=== PATIENT | male | born 1950 | race Caucasian/White ===

== ENCOUNTER 2017-02-02 09:08 | Outpatient (CLI) | payer MEDICARE, OTHER ==
--- NOTE | 2017-02-02 13:07 | XRAY Report ---
THREE VIEW LEFT HAND: 02/02/2017 CLINICAL INDICATION: Infection. FINDINGS: AP, lateral, and oblique views of the left hand demonstrate no evidence of fracture or dis location. No osteolysis is seen to suggest osteomyelitis. Osteoarthritic changes are present in the i nterphalangeal joints. No foreign body is seen in the soft tissues. IMPRESSION: OSTEOARTHRITIS. NO EVIDENCE OF FRACTURE. NO OSTEOLYSIS TO SUGGEST OSTEOMYELITIS. JOB #: [id number] EXT JOB #:[id number]
== END 2017-02-02 09:09 | disposition home or self-care (01) ==
LOC: DI 09:08
PROVIDERS: ATTEND Internal Medicine
DX: L08.89 Other specified local infections of the skin and subcutaneous tissue (principal); M19.042 Primary osteoarthritis, left hand

== ENCOUNTER 2017-07-25 12:15 | Outpatient (CLI) | payer MEDICARE, OTHER ==
[2017-07-25 14:09] LABS: LDL CHOLESTEROL,DIRECT 67 mg/dL
[2017-07-27 10:59] LABS: ALT ALANINE AMINOTRANSFERASE 26 IU/L (10-60); AST ASPARTATE AMINOTRANSFERASE 37 IU/L (10-42)
== END 2017-07-25 12:16 | disposition home or self-care (01) ==
LOC: LAB 12:15
PROVIDERS: ATTEND Internal Medicine
DX: E78.5 Hyperlipidemia, unspecified (principal); Z79.899 Other long term (current) drug therapy
CPT/HCPCS: 36415; 83721; 84450; 84460

== ENCOUNTER 2018-03-08 11:05 | Outpatient (CLI) | payer MEDICARE, OTHER ==
[2018-03-11 15:07] LABS: ANA SCREEN NEGATIVE (NEGATIVE)
== END 2018-03-08 11:06 | disposition home or self-care (01) ==
LOC: LAB 11:05
PROVIDERS: ATTEND Physician Assistant
DX: Z85.828 Personal history of other malignant neoplasm of skin (principal); L82.1 Other seborrheic keratosis; L81.4 Other melanin hyperpigmentation; D22.5 Melanocytic nevi of trunk; D22.72 Melanocytic nevi of left lower limb, including hip; Z71.89 Other specified counseling; L29.8 Other pruritus
CPT/HCPCS: 36415; 86038

== ENCOUNTER 2018-03-22 10:54 | Outpatient (CLI) | payer MEDICARE, OTHER ==
[2018-03-22 12:38] LABS: HGB - HEMOGLOBIN 14.7 g/dL (14.0-18.0); MEAN CORPUSCULAR HEMOGLOBIN 32.4 pg (27.0-31.0); MEAN CORPUSCULAR HGB CONC 34.7 g/dL (32.0-36.0); MEAN CORPUSCULAR VOLUME 93.4 fL (80.0-94.0); RED BLOOD COUNT 4.54 10^6/uL (4.70-6.10); RED CELL DISTRIBUTION WIDTH 13.9 % (12.0-15.0); WHITE BLOOD COUNT 6.1 x10^3/uL (4.8-10.8)
[2018-03-22 12:46] LABS: ALBUMIN 4.3 g/dL (3.2-5.5); ALBUMIN/GLOBULIN RATIO 1.7 (1.0-2.2); BILIRUBIN,TOTAL 0.6 mg/dL (0.2-1.0); CALCIUM 9.1 mg/dL (8.5-10.3); CREATININE 0.6 mg/dL (0.6-1.2); TOTAL PROTEIN 6.8 g/dL (6.7-8.2)
[2018-03-23 13:01] LABS: HEPATITIS C ANTIBODY NON-REACTIVE (NON-REACTIVE)
[2018-03-25 14:46] LABS: ANA SCREEN NEGATIVE (NEGATIVE)
== END 2018-03-22 10:55 | disposition home or self-care (01) ==
LOC: LAB 10:54
PROVIDERS: ATTEND Dermatology
DX: R21 Rash and other nonspecific skin eruption (principal); Z71.89 Other specified counseling; L29.8 Other pruritus
CPT/HCPCS: 36415; 80053; 81599; 85027; 86038; 86235; 86705; 86803

== ENCOUNTER 2018-04-30 13:39 | Outpatient (CLI) | payer MEDICARE, OTHER ==
[2018-04-30 14:03] LABS: BASOPHILS % (AUTO) 0.7 %; EOSINOPHILS # (AUTO) 0.1 10^3/uL (0.0-0.7); EOSINOPHILS % (AUTO) 1.7 %; HGB - HEMOGLOBIN 13.8 g/dL (14.0-18.0); LYMPHOCYTES # (AUTO) 1.2 10^3/uL (1.5-3.5); LYMPHOCYTES % (AUTO) 19.5 %; MEAN CORPUSCULAR HGB CONC 34.2 g/dL (32.0-36.0); MEAN CORPUSCULAR VOLUME 93.7 fL (80.0-94.0); MEAN PLATELET VOLUME 7.4 fL (7.4-11.4); MONOCYTES # (AUTO) 0.6 10^3/uL (0.0-1.0); MONOCYTES % (AUTO) 10.2 %; NEUTROPHILS # (AUTO) 4.3 10^3/uL (1.5-6.6); NEUTROPHILS % (AUTO) 67.9 %; PLT - PLATELET COUNT 200 10^3/uL (130-450); RED BLOOD COUNT 4.31 10^6/uL (4.70-6.10); RED CELL DISTRIBUTION WIDTH 13.8 % (12.0-15.0); WHITE BLOOD COUNT 6.3 x10^3/uL (4.8-10.8)
[2018-04-30 14:17] LABS: HB2 TOTAL 15.2 g/dL; HEMOGLOBIN A1C 0.68 g/dL; HEMOGLOBIN A1C % 6.2 % (4.6-6.2)
[2018-04-30 14:29] LABS: CALCIUM 8.7 mg/dL (8.5-10.3)
[2018-04-30 14:54] LABS: ALBUMIN/GLOBULIN RATIO 1.5 (1.0-2.2)
[2018-04-30 15:09] LABS: ALBUMIN 3.8 g/dL (3.2-5.5); BILIRUBIN,TOTAL 0.7 mg/dL (0.2-1.0); CREATININE 0.6 mg/dL (0.6-1.2); TOTAL PROTEIN 6.3 g/dL (6.7-8.2)
== END 2018-04-30 13:40 | disposition home or self-care (01) ==
LOC: LAB 13:39
PROVIDERS: ATTEND Internal Medicine
DX: R73.01 Impaired fasting glucose (principal); G60.9 Hereditary and idiopathic neuropathy, unspecified; E78.5 Hyperlipidemia, unspecified; J44.9 Chronic obstructive pulmonary disease, unspecified; Z79.899 Other long term (current) drug therapy; Z12.5 Encounter for screening for malignant neoplasm of prostate
CPT/HCPCS: 36415; 80053; 83036; 84443; 85025; G0103; 84153

== ENCOUNTER 2022-11-14 12:27 | Outpatient (CLI) | payer MEDICARE, OTHER ==
--- NOTE | 2022-11-14 16:55 | MRI Report ---
PROCEDURE: LUMBAR SPINE WO INDICATIONS: BACK PAIN TECHNIQUE: Noncontrast sagittal T1 spin echo and T2 fast echo, sagittal STIR, coronal T2, axial T1 and T2 fast s pin echo through the lumbar spine. COMPARISON: None. FINDINGS: Image quality: Excellent. Alignment and Curvature: No plain films are available for comparison. Thus, for numbering purposes, 5 lumbar type vertebral bodies with a transitional element at S1 will be presumed for the current rep ort, as denoted on the muse image panel. This should be confirmed with plain film correlation prior to any lumbar spinal intervention. Mild rightward curvature of the mid lumbar spine. Loss of normal lum bar lordosis. 4 mm of retrolisthesis of L1 on L2. 3 mm of retrolisthesis of L2 on L3. 8 mm of anterol isthesis of L4 on L5. 3 mm of retrolisthesis of L5 on S1. Bone Marrow: Marrow is of normal overall signal. No acute vertebral body compression fractures. Th ere is moderate reactive signal within the endplates adjacent to the L1-L2, L2-L3, L3-L4, and L5-S1 i ntervertebral discs. Mild reactive signal adjacent to the remaining visualized thoracolumbar discs. Spinal Cord: Conus medullaris terminates at the L1-L2 disc space level. Visualized cord demonstrate s normal signal and size. Paraspinous Soft Tissues: No paravertebral masses. T12-L1: Moderate disc height loss and desiccation. Mild diffuse disc bulge with superimposed right p osterolateral broad-based protrusion. Mild canal stenosis. Mild right greater than left foraminal chuy nosis. L1-L2: Moderate disc height loss and desiccation. Mild diffuse disc bulge. Mild facet and ligament flavum hypertrophy. Mild canal stenosis. Moderate bilateral foraminal stenosis. L2-L3: Severe disc height loss and desiccation. Mild diffuse disc bulge with superimposed left far lateral protrusion. Mild facet and ligament flavum hypertrophy. Mild canal stenosis. Moderate bilate ral foraminal stenosis. L3-L4: Severe disc height loss and desiccation. Moderate diffuse disc bulge/osteophyte with superim posed left far lateral protrusion. Mild facet and ligament flavum hypertrophy. Mild canal stenosis. M oderate to severe right and severe left foraminal stenosis. Left greater than right L3 nerve root com pression. L4-L5: Severe disc height loss and desiccation. Mild diffuse disc bulge. Mild facet and ligament fl avum hypertrophy. Mild canal stenosis. Moderate bilateral foraminal stenosis. L5-S1: Severe disc height loss and desiccation. Moderate diffuse disc bulge/osteophyte. Mild facet hypertrophy and ligament flavum hypertrophy. Mild canal stenosis. Moderate right and moderate to dona re left foraminal stenosis. Left L5 nerve root compression. IMPRESSION: 1. Multilevel degenerative disc and facet disease, in addition to epidural lipomatosis and ligamentum flavum hypertrophy. 2. Mild multilevel canal stenoses. 3. Multilevel foraminal stenoses, worst at L3-L4 and L5-S1 where there is associated intraforaminal n erve root compression. Recommend correlation with clinical symptoms to ascertain relevance of these f indings. 4. Five lumbar type vertebral bodies with a transitional element at S1 were presumed for the purposes of the current report. Correlation with plainfilms as well as the muse image panel of the current ex amination for numbering purposes is recommended prior to any lumbar spinal intervention. Reviewed by: Mojgan Szymanski MD on 11/14/2022 4:54 PM PDT Approved by: Mojgan Szymanski MD on 11/14/2022 4:54 PM PDT Station ID: [id number]
== END 2022-11-14 12:28 | disposition home or self-care (01) ==
LOC: DI 12:27
PROVIDERS: ATTEND Nurse Practitioner
DX: M47.26 Other spondylosis with radiculopathy, lumbar region (principal); M51.36 Other intervertebral disc degeneration, lumbar region; M51.26 Other intervertebral disc displacement, lumbar region; M48.061 Spinal stenosis, lumbar region without neurogenic claudication; M51.35 Other intervertebral disc degeneration, thoracolumbar region; M48.05 Spinal stenosis, thoracolumbar region; M51.37 Other intervertebral disc degeneration, lumbosacral region; M48.07 Spinal stenosis, lumbosacral region; M47.27 Other spondylosis with radiculopathy, lumbosacral region

== ENCOUNTER 2023-01-23 08:00 | Outpatient (CLI) | payer MEDICARE, OTHER ==
--- NOTE | 2023-01-23 14:51 | XRAY Report ---
PROCEDURE: Shoulder 3 View RT INDICATIONS: RIGHT SHOULDER PAIN TECHNIQUE: 3 views of the shoulder were acquired. COMPARISON: None. FINDINGS: Bones: No fractures or dislocations. No suspicious bony lesions. Visualized ribs appear intact. Mild AC joint hypertrophy and glenohumeral joint degenerative changes. Soft tissues: No suspicious soft tissue calcifications. IMPRESSION: No acute bony abnormality. If pain persists with conservative management, consider repeat radiographs in 10-14 days or cross-sectional imaging. Degenerative changes of the acromioclavicular and glenohumeral joints. Reviewed by: Diego Barahona MD on 01/23/2023 2:50 PM PDT Approved by: Diego Barahona MD on 01/23/2023 2:50 PM PDT Station ID: [id number]
--- NOTE | 2023-01-23 14:54 | XRAY Report ---
PROCEDURE: Hip w/Pelvis 2-3V RT INDICATIONS: RIGHT HIP PAIN TECHNIQUE: AP pelvis with lateral view(s) of the right hip(s). COMPARISON: None. FINDINGS: Bones: No fractures or dislocations. No suspicious bony lesions. Bilateral hip joint space narrow ing. Mild right hip spurring also present. Soft tissues: No suspicious soft tissue calcifications. IMPRESSION: No acute bony abnormality. If there remains a high clinical concern for fracture, consider cross-sect ional imaging now. If pain persists, consider repeat x-ray in 10-14 days or cross-sectional imaging. Degenerative changes of both hips. Reviewed by: Diego Barahona MD on 01/23/2023 2:53 PM PDT Approved by: Diego Barahona MD on 01/23/2023 2:53 PM PDT Station ID: [id number]
== END 2023-01-23 23:59 | disposition home or self-care (01) ==
LOC: DI.S 08:00
PROVIDERS: ATTEND Emergency Medicine
DX: M19.011 Primary osteoarthritis, right shoulder (principal); M16.0 Bilateral primary osteoarthritis of hip

== ENCOUNTER 2023-01-29 11:39 | Outpatient (CLI) | payer MEDICARE, OTHER ==
[2023-01-29 11:57] LABS: BASOPHILS % (AUTO) 0.1 %; EOSINOPHILS # (AUTO) 0.1 10^3/uL (0.0-0.7); EOSINOPHILS % (AUTO) 1.1 %; HCT - HEMATOCRIT 42.4 % (42.0-52.0); HGB - HEMOGLOBIN 14.4 g/dL (14.0-18.0); LYMPHOCYTES # (AUTO) 1.9 10^3/uL (1.5-3.5); LYMPHOCYTES % (AUTO) 17.9 %; MEAN CORPUSCULAR HEMOGLOBIN 33.6 pg (27.0-31.0); MEAN CORPUSCULAR VOLUME 98.8 fL (80.0-94.0); MEAN PLATELET VOLUME 9.3 fL (7.4-11.4); MONOCYTES # (AUTO) 0.9 10^3/uL (0.0-1.0); MONOCYTES % (AUTO) 8.7 %; NEUTROPHILS # (AUTO) 7.5 10^3/uL (1.5-6.6); NEUTROPHILS % (AUTO) 71.7 %; PLT - PLATELET COUNT 294 10^3/uL (130-450); RED BLOOD COUNT 4.29 10^6/uL (4.70-6.10); RED CELL DISTRIBUTION WIDTH 14.8 % (12.0-15.0); WHITE BLOOD COUNT 10.5 x10^3/uL (4.8-10.8)
[2023-01-29 12:19] LABS: ALBUMIN/GLOBULIN RATIO 1.9 (1.0-2.2); BILIRUBIN,TOTAL 0.6 mg/dL (0.2-1.0); CALCIUM 9.2 mg/dL (8.5-10.3); CREATININE 0.8 mg/dL (0.6-1.3); CRP - C-REACTIVE PROTEIN 0.5 mg/dL (<0.5); POTASSIUM 4.1 mmol/L (3.5-4.5); TOTAL PROTEIN 6.1 g/dL (6.4-8.9)
== END 2023-01-29 11:40 | disposition home or self-care (01) ==
LOC: LAB 11:39
PROVIDERS: ATTEND Internal Medicine
DX: M12.80 Other specific arthropathies, not elsewhere classified, unspecified site (principal)
CPT/HCPCS: 36415; 80053; 85025; 85651; 86140

== ENCOUNTER 2023-02-01 12:44 | Outpatient (CLI) | payer MEDICARE, OTHER ==
--- NOTE | 2023-02-01 14:41 | MRI Report ---
PROCEDURE: CERVICAL SPINE WO INDICATIONS: DISEASE OF SPINAL CORD TECHNIQUE: Noncontrast sagittal T1 spin echo and T2 fast spin echo, sagittal STIR, foraminal oblique sagittal T2 fast spin echo, and axial gradient echo or T2 fast spin echo through the cervical spine. COMPARISON: None. FINDINGS: Image quality: Excellent. Alignment and Curvature: Straightening of the normal cervical lordosis. Minimal retrolisthesis of C3 on C4 and anterolisthesis of C4 on C5. Minimal retrolisthesis of C6 on C7 and anterolisthesis of C7 o n T1. Bone Marrow: Multilevel degenerative endplate changes. Partial ankylosis of the C5 and C6 vertebral b odies and right facet joints. Spinal Cord: Visualized spinal cord has normal size and signal. No cerebellar tonsillar herniation. Paraspinous Soft Tissues: No paravertebral masses. Prevertebral soft tissues are normal in thicknes s. C2-C3: Small posterior disc bulge. Mild central canal stenosis. Facet and uncovertebral arthropathy resulting in mild right neuroforaminal stenosis. No left neuroforaminal stenosis. C3-C4: Severe disc desiccation and height loss. Small posterior disc bulge. Mild central canal sten osis. Facet and uncovertebral arthropathy. Mild left and moderate right neuroforaminal stenosis. C4-C5: Disc desiccation and height loss. Small posterior disc bulge. No central canal stenosis. Face t and uncovertebral arthropathy. No significant neural foraminal stenosis. C5-C6: Severe disc desiccation and height loss. Small posterior disc osteophyte complex. Mild centra l canal stenosis. Facet and uncovertebral arthropathy. Mild left and no right neuroforaminal stenosis . C6-C7: Severe disc desiccation and height loss. Small posterior disc bulge. Mild central canal steno sis. Facet and uncovertebral arthropathy. Severe left and moderate right neuroforaminal stenosis. C7-T1: Disc desiccation and small central protrusion. No central canal stenosis. No neuroforaminal s tenosis. IMPRESSION: 1.Multilevel degenerative changes of the cervical spine. 2.Mild multilevel central canal stenosis. 3.Multilevel neuroforaminal narrowing, worse at C6-C7 with severe left and moderate right neuroforami nal stenosis. Reviewed by: Drew Bernstein MD on 02/01/2023 2:40 PM PDT Approved by: Drew Bernstein MD on 02/01/2023 2:40 PM PDT Station ID: [id number]
== END 2023-02-01 12:45 | disposition home or self-care (01) ==
LOC: DI 12:44
PROVIDERS: ATTEND Orthopaedic Surgery
DX: M47.812 Spondylosis without myelopathy or radiculopathy, cervical region (principal); M50.31 Other cervical disc degeneration, high cervical region; M48.02 Spinal stenosis, cervical region

== ENCOUNTER 2023-03-15 08:42 | Outpatient (CLI) | payer MEDICARE, OTHER ==
--- NOTE | 2023-03-15 09:17 | Sleep Patient Instructions ---
Sleep Center Visit Summary - Patient Visit Information Reason for Visit: Initial consult for evaluation of sleep disordered breathing and other sleep issues. - Patient Instructions Instructions Attached: Sleep Clinic Visit, Sleep Study Additional Instructions: You will be completing a sleep study, either an in-lab polysomnography (PSG) or home sleep study (HST). You will follow-up in the sleep care office after the sleep study is completed to hear the results and talk about therapy, if needed. You will be called by our office staff to schedule this appointment, but you may contact us with any questions. - Clinic Information Contact: [facility] [address] [place] [address] [email or web address] T: [phone]
--- NOTE | 2023-03-15 09:25 | SLEEP CARE CONSULTATION ---
Information from patient questionnaire entered by Nancy Castillo. I have reviewed and concur with the information entered by Nancy Castillo. This document represents the service I personally performed and the decisions made by me, Paz Mendez ARNP. History of Present Illness Service Date and Time: 03/15/2023 0842 Reason for Visit: New patient Accompanied by: Spouse (Marjorie) Chief Complaint: reports: Unrefreshed sleep, Excessive daytime sleepiness, Observed pauses in breathing Date of Onset: over 25 years Usual bedtime: 10PM Time it takes to fall asleep: 5MIN Snores at night: No Observed to quit breathing while asleep: Yes Sleeps alone due to snoring: No Number of times waking at night: 1 Reasons for waking at night: reports: Other (UNKNOWN). denies: Choking, Gasping for air Toss, Turn, or Twitch while sleeping: Yes Recalls having dreams: No (not often) Usually gets out of bed at: 5AM Feels refreshed in the morning: Yes Morning headache: No Sleepy or fatigued during the day: Yes Ever fallen asleep while driving: No Takes day naps: Yes (1 x week, intentional; unintentional daily for short periods) Dreams during day naps: No Additional HPI information: I had the pleasure of seeing KILEY NIEVES today regarding the possibility of him having a sleep disorder. His current complaints are unrefreshed sleep, observed pauses in breathing and daytime sleepiness. He is accompanied by his , Marjorie. He states he goes to sleep without difficulty and only wakes up about once during the night. He is falling asleep on the couch, as a passenger in a car, in the movies and sometimes when just talking to someone quietly. He will fall asleep when he is playing cards with friends. He states he has restless legs and takes ropinirole. He does not snore but does groan in his sleep. He states he tried CPAP 25 years ago after being diagnosed with sleep apnea but he did not tolerate it and stopped therapy. His states he was told that he stopped breathing over 100 times a night. She has seen him pause in breathing when asleep. 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 He tells me that he does wake up feeling refreshed but is tired throughout the day. - Parasomnia Symptoms Ever been unable to move upon waking from sleep: No Walks in sleep: No Talks in sleep: Yes Ever acted out dreams in sleep: No Ever felt weak in the knees when startled or emotional: No Bothered by creepy, crawly, restless sensations in legs: Yes (RLS) Problems with memory or concentration: Yes ("horrible memory") Subjective Initial [place] Sleepiness Scale score: 14 (03/15/23) Past Medical History Past Medical History: reports: Arthritis, Attention deficit, Other (RLS; high cholesterol) Social History The patient's occupation is a RE. Patient is and lives in [place]. Have you smoked in the past 12 months: Yes Cigarettes per day (20/pack): 20 Years of smokin Smoking Pack Years: 50.0 Alcohol use: Yes Alcohol amount and frequency: 2 BEERS A WEEK Caffeine use: Yes Caffeine amount and frequency: 5 CUPS COFFEE daily Family History Family history of sleep disordered breathing: Yes Family Hx Sleep Apnea: Mother: Sleep apnea - Untreated, Father: Snoring, Sibling: Sleep apnea - Treated, Sleep apnea - Untreated Allergies and Home Medications Known drug allergies: No Drug allergies reviewed: Yes Home medication list reviewed: Yes Allergy and home medication list: Allergies No Known Drug Allergies Allergy (Verified 03/15/23 08:52) Home Medications Aspirin [[place]] See Rx Instructions .ROUTE .COMPLEX 03/15/23 [History] Ropinirole HCl [Ropinirole ER] See Rx Instructions .ROUTE .COMPLEX 03/15/23 [History] Rosuvastatin Calcium [Crestor] See Rx Instructions .ROUTE .COMPLEX 03/15/23 [History] Review of Systems Weight loss over past 5 years: 5 Cardiovascular: denies: high blood pressure Respiratory: denies: shortness of breath Gastrointestinal: denies: heartburn Neurological: denies: headaches, head trauma Psychiatric: denies: anxiety, depression Ear/Nose/Throat: reports: tonsillectomy, wisdom teeth removed. denies: injury to nose Endocrine: denies: thyroid disease Musculoskeletal: reports: joint pain, neck pain, back pain Immunologic: denies: allergies to food or environment Physical Exam Vital signs obtained and entered by: NANCY Sosa MA Blood Pressure: 142/98 (LEFT ARM) Cuff size: regular Heart Rate: 60 O2 Saturation: 98 Height: 5 ft 10 in Weight: 126 lb 6.4 oz Body Mass Index: 18.1 BMI Classification: Underweight Neck circumference: 13.5 Mouth and throat: narrow oropharynx Soft palate: long Hard palate: normal Uvula: normal Uvula visualization: 25% Mallampati Class III Tongue: normal in size Tonsils: absent bilaterally Neck: normal w/o lymphadenopathy or thyromegaly Heart: irregular rhythm Lungs: clear bilaterally Impression and Plan 1. Suspected Obstructive Sleep Apnea-Hypopnea Syndrome, as previously diagnosed and as suggested by a history of observed cessation of breath while asleep, unrefreshed sleep, cognitive impairment, and excessive daytime sleepiness. Narrow oropharynx and obesity are common predisposing factors for obstructive sleep apnea-hypopnea syndrome. I recommend proceeding to polysomnography to confirm the diagnosis and to assess severity. If the patient has significant sleep disordered breathing, a manual CPAP titration study will also be performed to find the optimal treatment pressure. I informed the patient of what the sleep studies involve and after some discussion, obtained agreement to proceed. The pathophysiology of obstructive sleep apnea-hypopnea syndrome was discussed with the patient and health risks of cardiovascular and cerebrovascular disease if not treated. Risks of drowsy driving discussed in detail and patient advised to avoid long distance driving and to over hauler helper at the first sign of drowsiness. Patient agreed to plan. * Schedule polysomnography. * Avoid long distance driving or driving when feeling sleepy. * Avoid alcohol, sedative and muscle relaxant around bedtime. * Review instructions provided by trained office staff on how to prepare for the sleep study. * Return for follow-up after sleep study completed. Plan: PSG evaluation Visit Type: In Office Time Spent with Patient (minutes): 31 Provider Statement: I spent 100% of the Face to Face Visit with the patient with greater than 50% spent counseling the patient and coordination of care.
[2023-03-15 09:31] VITALS: BP 142/98; O2SAT 98
== END 2023-03-15 08:43 | disposition home or self-care (01) ==
LOC: SC 08:42
PROVIDERS: ATTEND Nurse Practitioner Family
DX: G47.33 Obstructive sleep apnea (adult) (pediatric) (principal); F17.210 Nicotine dependence, cigarettes, uncomplicated
CPT/HCPCS: 99203; G0463; 99212

== ENCOUNTER 2023-04-10 20:48 | Outpatient (CLI) | payer MEDICARE, OTHER | END 2023-04-10 20:49 | disposition home or self-care (01) | LOC: SC 20:48 | PROVIDERS: ATTEND Nurse Practitioner Family | DX: G47.33 Obstructive sleep apnea (adult) (pediatric) (principal); G47.61 Periodic limb movement disorder; I49.3 Ventricular premature depolarization | CPT/HCPCS: 95810 ==

== ENCOUNTER 2023-08-22 14:19 | Outpatient (CLI) | payer MEDICARE, OTHER ==
--- NOTE | 2023-08-22 10:46 | SLEEP CARE CONSULTATION ---
Information from patient questionnaire entered by Nancy Castillo. I have reviewed and concur with the information entered by Nancy Castillo. This document represents the service I personally performed and the decisions made by , Paz Mendez ARNP. History of Present Illness Service Date and Time: 08/22/2023 1020 Previous diagnosis: Severe, Obstructive Sleep Apnea-Hypopnea Syndrome AHI: 32.3 (04/10/2023) Reason for follow up: first compliance Equipment type: CPAP (RESMED Airsense 11, s/u 05/2023) Equipment obtained from: [email or web address] (getting supplies) Mask style: Nasal (over the nose) Backup mask available: No (will keep old mask when replaced) Last cushion change: 3 weeks Type of Sleep Study: Polysomnography (COMPLETED 04/10/23) HPI additional information: KILEY NIEVES was diagnosed to have severe, AHI 32.3, obstructive sleep apnea- hypopnea syndrome and returns via telephone appointment today for CPAP therapy first compliance follow-up. Sleep Study - Results Type of Sleep Study: Polysomnography (COMPLETED 04/10/23) CPAP Compliance Data - Data Reviewed with Patient Average duration of nightly device use: 4 HRS 48 MINS Compliance rate %: 70 (05/18/23-06/16/23; 30% in last 30 days) Current pressure setting (cmH2O): 4-15 (median 6.8, avg 9.6, max 10.5) Average residual AHI: 4.0 Central apnea: 0.6 Obstructive apnea: 1.5 Hypopnea: 0.4 Average large leak: 13.2 L/min Subjective Missed days of use due to: reports: travel Patient concerns: reports: mask leak noise (improved with using chin strap). denies: aerophagia, mask discomfort, air blowing in eyes, condensation in mask/hose, nasal congestion, dry mouth, nose, throat, epistaxis Observed to snore while using device: No Current pressure setting perceived as: comfortable On therapy, patient: reports: sleeping better, awakening more refreshed, being more awake and alert during the day, more rested overall, other (does not fall asleep during day as easy as before CPAP). denies: drowsiness while driving Initial [place] Sleepiness Scale score: 14 (03/15/23) Current [place] Sleepiness Scale score: 8 (08/22/23) Allergies and Home Medications Known drug allergies: No Drug allergies reviewed: Yes Home medication list reviewed: Yes (no changes) Allergy and home medication list: Allergies No Known Drug Allergies Allergy (Verified 08/21/23 14:52) Review of Systems Review of systems same as previous: Yes (NO CHANGE) Physical Exam Vital signs obtained and entered by: NANCY Sosa MA Height: 5 ft 11 in (PER PT) Weight: 130 lb (PER PT) Body Mass Index: 18.1 BMI Classification: Underweight Impression and Plan 1. Obstructive Sleep Apnea-Hypopnea Syndrome, severe, with good treatment compliance and good apnea control. On CPAP therapy, the patient has better sleep quality and is more rested overall. He had good compliance initially but in the last month it has reduced because of some travel time where he was unable to plug in his CPAP. He is back to using it nightly since returning home. He has been tolerating the pressure well at his current settings and has no complaints or issues at this time. He does have significant improvement of his sleep apnea. The patients pressure will be changed to autoCPAP 8-12 cmH20 to reflect pressure being used. Patient advised to contact me if pressure change is uncomfortable so that it can be adjusted. Goals for apnea control discussed. Patient's apnea severity and rationale for treatment to reduce apnea, improve sleep quality and reduce cardiovascular and cerebrovascular events was reviewed. I also reviewed the benefit of consistent device use of CPAP for attention deficit and RLS. * Change auto CPAP pressure to 8-12 cmH2O * Notify me if snoring with mask or feeling that the pressure is too much or too little * Call this office if any problems using CPAP * Return for follow up in 1-2 months, or sooner if concerns arise Adjust device pressure to (cmH2O): 8-12 Counseling Topics: Spare mask, Weight loss health impact Follow up with Sleep Care in: 1-2 months Visit Type: Telehealth Phone Video Type: Yiity Patient Location: Home Location of Provider: Office Patient agrees and consents to this telehealth visit type: Yes Time Spent with Patient (minutes): 14 Provider Statement: I spent 100% of the Telehealth Phone Call with the patient with greater than 50% spent counseling the patient and coordination of care.
== END 2023-08-22 14:20 | disposition home or self-care (01) ==
LOC: SC 14:19
PROVIDERS: ATTEND Nurse Practitioner Family
DX: G47.33 Obstructive sleep apnea (adult) (pediatric) (principal)
CPT/HCPCS: 99442

== ENCOUNTER 2023-10-24 10:50 | Outpatient (CLI) | payer MEDICARE, OTHER ==
--- NOTE | 2023-10-24 10:41 | SLEEP CARE CONSULTATION ---
Information from patient questionnaire entered by Nancy Castillo. I have reviewed and concur with the information entered by Nancy Castillo. This document represents the service I personally performed and the decisions made by , Paz Mendez ARNP. History of Present Illness Service Date and Time: 10/24/2023 1020 Previous diagnosis: Severe, Obstructive Sleep Apnea-Hypopnea Syndrome AHI: 32.3 (04/10/2023) Reason for follow up: other (2 MONTH F/U) Equipment type: CPAP (RESMED Airsense 11, s/u 05/2023) Equipment obtained from: [facility] ([employer]) Mask style: Nasal (over the nose) Mask brand: Resmed (N20) Backup mask available: Yes Last cushion change: 1 week Type of Sleep Study: Polysomnography (COMPLETED 04/10/23) HPI additional information: KILEY NIEVES was diagnosed to have severe, AHI 32.3, obstructive sleep apnea-hyp opnea syndrome and returns via telephone visit today for CPAP therapy two month follow-up. Sleep Study - Results Type of Sleep Study: Polysomnography (COMPLETED 04/10/23) CPAP Compliance Data - Data Reviewed with Patient Average duration of nightly device use: 3 HRS 12 MINS Compliance rate %: 17 (08/23/23-; 30/60 days used) Current pressure setting (cmH2O): 8-12 (6-10) Average residual AHI: 5.4 Central apnea: 1.5 Obstructive apnea: 1.6 Hypopnea: 0.4 Average large leak: 19.3 L/min Subjective Missed days of use due to: reports: travel (in [facility] [place] [facility] months, places with no power), other (taking mask off after 2-3 hours) Patient concerns: reports: mask leak noise (occasionally). denies: aerophagia, mask discomfort, air blowing in eyes, condensation in mask/hose, nasal congestion, dry mouth, nose, throat, epistaxis Observed to snore while using device: No Current pressure setting perceived as: too high On therapy, patient: reports: sleeping better, awakening more refreshed, being more awake and alert during the day, more rested overall. denies: drowsiness while driving Initial Con[place] Sleepiness Scale score: 14 (03/15/23) Current Conley Sleepiness Scale score: 13 (10/24/23) Allergies and Home Medications Known drug allergies: No Drug allergies reviewed: Yes Home medication list reviewed: Yes (no changes) Allergy and home medication list: Allergies No Known Drug Allergies Allergy (Verified 10/22/23 08:58) Review of Systems Review of systems same as previous: Yes (NO CHANGE) Physical Exam Vital signs obtained and entered by: NANCY Sosa MA Height: 5 ft 10 in (PER PT) Weight: 130 lb (PER PT) Body Mass Index: 18.6 BMI Classification: Normal Impression and Plan 1. Obstructive Sleep Apnea-Hypopnea Syndrome, severe, with fair treatment compliance and fair apnea control with minimal elevation of residual AHI. On CPAP therapy, the patient has better sleep quality and is more rested overall. He has felt the pressure was too high and would cause leak noises. His compliance was affected by his traveling in his RV and parking in places that did not have electricity. He also has been taking off after 2-3 hours because of mask noise and discomfort. The patients pressure will be changed to autoCPAP 6-10 cmH20 for elevation of residual AHI. I will also write to change the mask to the P10 nasal pillows mask that he requested to change to. Patient advised to contact me if pressure change is uncomfortable so that it can be adjusted. Goals for apnea control discussed. Patient's apnea severity and rationale for treatment to reduce apnea, improve sleep quality and reduce cardiovascular and cerebrovascular events was reviewed. I also reviewed the benefit of consistent device use of CPAP for attention deficit and RLS. * Change auto CPAP pressure to 6-10 cmH2O * Mask fitting for nasal pillows mask, P10 * Notify me if snoring with mask or feeling that the pressure is too much or too little * Call this office if any problems using CPAP * Return for follow up in 1-2 months, or sooner if concerns arise Adjust device pressure to (cmH2O): 6-10 Counseling Topics: Spare mask, Weight loss health impact Follow up with Sleep Care in: 1-2 months Visit Type: Telehealth Phone Video Type: Miguel Patient Location: Home Location of Provider: Office Patient agrees and consents to this telehealth visit type: Yes Time Spent with Patient (minutes): 19 Provider Statement: I spent 100% of the Telehealth Phone Call with the patient with greater than 50% spent counseling the patient and coordination of care.
== END 2023-10-24 10:51 | disposition home or self-care (01) ==
LOC: SC 10:50
PROVIDERS: ATTEND Nurse Practitioner Family
DX: G47.33 Obstructive sleep apnea (adult) (pediatric) (principal)
CPT/HCPCS: 99442

== ENCOUNTER 2023-11-04 16:59 | Inpatient (IN) | payer MEDICARE, BC ==
[2023-11-04 17:20] LABS: BASOPHILS % (AUTO) 0.3 %; EOSINOPHILS % (AUTO) 0.1 %; HCT - HEMATOCRIT 51.5 % (42.0-52.0); HGB - HEMOGLOBIN 16.9 g/dL (14.0-18.0); LYMPHOCYTES # (AUTO) 1.2 10^3/uL (1.5-3.5); LYMPHOCYTES % (AUTO) 10.4 %; MEAN CORPUSCULAR HEMOGLOBIN 31.6 pg (27.0-31.0); MEAN CORPUSCULAR HGB CONC 32.8 g/dL (32.0-36.0); MEAN CORPUSCULAR VOLUME 96.4 fL (80.0-94.0); MEAN PLATELET VOLUME 10.2 fL (7.4-11.4); MONOCYTES # (AUTO) 0.5 10^3/uL (0.0-1.0); MONOCYTES % (AUTO) 4.5 %; NEUTROPHILS # (AUTO) 9.8 10^3/uL (1.5-6.6); NEUTROPHILS % (AUTO) 84.4 %; PLT - PLATELET COUNT 225 10^3/uL (130-450); RED BLOOD COUNT 5.34 10^6/uL (4.70-6.10); RED CELL DISTRIBUTION WIDTH 13.1 % (12.0-15.0); WHITE BLOOD COUNT 11.7 x10^3/uL (4.8-10.8)
--- NOTE | 2023-11-04 17:24 | ED Physician Documentation ---
PD HPI ABD PAIN - Stated complaint Stated Complaint: ABD PX/VOMIT - Chief complaint Chief Complaint: Abd Pain - History obtained from History obtained from: Patient - Additional information Additional information: Starting this morning around 7 AM he developed upper abdominal pain which is severe as well as vomiting. He did have a normal bowel movement. He has had a hernia repair with mesh in the past. He denies chest pain or trouble breathing with this. PD PAST MEDICAL HISTORY - Past Medical History Past Medical History: Yes Cardiovascular: None Respiratory: Emphysema, Other Neuro: None Endocrine/Autoimmune: None : None HEENT: None Psych: None Musculoskeletal: Osteoarthritis Derm: None - Past Surgical History Past Surgical History: Yes - Present Medications Home Medications: Ambulatory Orders Medication Instructions Recorded Confirmed Aspirin [Vazalore] 81 mg ORAL DAILY 03/15/23 11/04/23 Ropinirole HCl [Ropinirole ER] 8 mg ORAL DAILY PM 03/15/23 11/04/23 Rosuvastatin Calcium [Crestor] 10 mg ORAL DAILY PM 03/15/23 11/04/23 Gabapentin [Neurontin] 0 mg PO HS 11/04/23 11/04/23 - Allergies Allergies/Adverse Reactions: Allergies Allergy/AdvReac Type Severity Reaction Status Date / Time No Known Drug Allergies Allergy Verified 11/04/23 17:01 - Living Situation Living Situation: reports: With spouse/s.o. - Social History Does the pt smoke?: Yes Smoking Status: Current every day smoker Does the pt drink ETOH?: No Does the pt have substance abuse?: No - Immunizations Immunizations are current?: Yes PD ED PE NORMAL - Vitals Vital signs reviewed: Yes (Triage blood pressure was low, but subsequent blood pressures were normal ) - General General: Alert and oriented X 3, No acute distress - HEENT HEENT: PERRL, EOMI - Neck Neck: Supple, no meningeal sign, No bony TTP - Cardiac Cardiac: RRR, No murmur - Respiratory Respiratory: No respiratory distress, Clear bilaterally - Abdomen Abdomen: Soft, Other (Soft but somewhat distended abdomen with hyperactive bowel sounds and what seems to be migratory tenderness predominantly in the upper abdomen. No surgical signs.) - Derm Derm: Other (He is very [place] having spent 6 weeks recently in [place].) - Extremities Extremities: No edema, No calf tenderness / cord - Neuro Neuro: Alert and oriented X 3, Normal speech Results - Vitals Vitals: Vital Signs - 24 hr 11/04/23 11/04/23 17:02 19:07 Temperature 36.7 C Heart Rate 96 99 Respiratory 18 16 Rate Blood Pressure 96/54 L 143/92 H O2 Saturation 99 93 Oxygen O2 Source Room air - EKG (time done) 1729 EKG releavant findings:: EKG personally interpreted by author of this note. Relevant findings are: Rate: Rate (enter#) (88) Rhythm: NSR, ANKUR [place]: RAD Intervals: Normal RI QRS: Normal Ischemia: Normal ST segments. No: ST elevation c/w ischemia 1937 EKG releavant findings:: EKG personally interpreted by author of this note. Relevant findings are: Rate: Rate (enter#) (94) Rhythm: Atrial fibrillation (w pvcs) [place]: RAD Intervals: Normal RI QRS: Normal Ischemia: Normal ST segments - Labs Labs: Laboratory Tests 11/04/23 11/04/23 11/04/23 17:12 17:12 17:15 WBC 11.7 H RBC 5.34 Hgb 16.9 Hct 51.5 MCV 96.4 H MCH 31.6 H MCHC 32.8 RDW 13.1 Plt Count 225 MPV 10.2 Neut # (Auto) 9.8 H Lymph # (Auto) 1.2 L [place] # (Auto) 0.5 Eos # (Auto) 0.0 Baso # (Auto) 0.0 Absolute Nucleated RBC 0.00 Nucleated RBC % 0.0 Sodium 134 L Potassium 4.2 Chloride 97 L Carbon Dioxide 30 Anion Gap 7.0 BUN 20 Creatinine 0.8 Estimated GFR (MDRD) 95 Glucose 118 H Lactic Acid Calcium 10.4 H Total Bilirubin 0.6 AST 28 ALT 22 Alkaline Phosphatase 64 Total Protein 7.3 Albumin 4.6 Globulin 2.7 Albumin/Globulin Ratio 1.7 Lipase 20 Urine Color YELLOW Urine Clarity CLEAR Urine pH 5.5 Ur Specific [place] >=1.030 H Urine Protein NEGATIVE Urine Glucose (UA) NEGATIVE Urine Ketones 15 H Urine Occult Blood NEGATIVE Urine Nitrite NEGATIVE Urine Bilirubin NEGATIVE Urine Urobilinogen 0.2 (NORMAL) Ur Leukocyte Esterase NEGATIVE Ur Microscopic Review NOT INDICATED Urine Culture Comments NOT INDICATED 11/04/23 18:45 WBC RBC Hgb Hct MCV MCH MCHC RDW Plt Count MPV Neut # (Auto) Lymph # (Auto) [place] # (Auto) Eos # (Auto) Baso # (Auto) Absolute Nucleated RBC Nucleated RBC % Sodium Potassium Chloride Carbon Dioxide Anion Gap BUN Creatinine Estimated GFR (MDRD) Glucose Lactic Acid 0.7 Calcium Total Bilirubin AST ALT Alkaline Phosphatase Total Protein Albumin Globulin Albumin/Globulin Ratio Lipase Urine Color Urine Clarity Urine pH Ur Specific [place] Urine Protein Urine Glucose (UA) Urine Ketones Urine Occult Blood Urine Nitrite Urine Bilirubin Urine Urobilinogen Ur Leukocyte Esterase Ur Microscopic Review Urine Culture Comments PD Medical Decision Making - ED course ED course: 73-year-old gentleman presents with acute upper abdominal pain and vomiting. He has a history of hernia repair with mesh. He was somewhat distended kind of like a bowel obstruction, that said he had hyperactive bowel sounds which is atypical. He did not have a surgical belly. Workup demonstrated white count with mild leukocytosis of 11,000, pretty unremarkable CMP and urine. CT imaging demonstrated a small bowel obstruction was some ascites and I discussed the case with by phone with our on-call surgeon Dr. Tejeda at approximately 6:40 PM. She will come in and see the patient and admit him. In the interim we did medicate him with IV Dilaudid and Zofran with good relief and subsequently placed an NG tube to low intermittent suction for decompression. Prior to admission the surgeon noted that on the monitor it looked like he was in A-fib. His initial EKG was sinus rhythm. We repeated 1 and he is now in A- fib with frequent PVCs. He does have a history of A-fib so probably just paroxysmal. Dr. Tejdea plans to consult the hospitalist tomorrow for operative Risk stratification. Departure - Departure Disposition: [address] [facility] [place] Clinical Impression: Small bowel obstruction Condition: Stable Discharge Date/Time: 11/04/23 20:41
[2023-11-04 17:26] LABS: BILIRUBIN,URINE NEGATIVE (NEGATIVE); GLUCOSE, URINE (UA) NEGATIVE (NEGATIVE); KETONES,URINE (UA) 15 mg/dL (NEGATIVE); LEUKOCYTE ESTERASE, URINE NEGATIVE (NEGATIVE); NITRITE,URINE NEGATIVE (NEGATIVE); OCCULT BLOOD,URINE NEGATIVE (NEGATIVE); PH,URINE 5.5 PH (5.0-7.5); PROTEIN,URINE NEGATIVE (NEGATIVE); UROBILINOGEN,URINE 0.2 (NORMAL) E.U./dL (NORMAL)
[2023-11-04 17:29] LABS: CLARITY,URINE CLEAR (CLEAR)
[2023-11-04 17:35] LABS: ALBUMIN 4.6 g/dL (3.2-5.5); ALBUMIN/GLOBULIN RATIO 1.7 (1.0-2.2); BILIRUBIN,TOTAL 0.6 mg/dL (0.2-1.0); CALCIUM 10.4 mg/dL (8.5-10.3); CREATININE 0.8 mg/dL (0.6-1.3); POTASSIUM 4.2 mmol/L (3.5-4.5); TOTAL PROTEIN 7.3 g/dL (6.4-8.9)
[2023-11-04] MEDS: HYDROmorphone 1 MG/ML CARPUJECT IVP STA (17:35)
[2023-11-04] MEDS: ONDANSETRON 4 MG/2 ML VIAL IVP STA (17:35)
[2023-11-04] MEDS ORDERED: iohexoL-300 100 ML VIAL ONE (17:40)
[2023-11-04] MEDS: iohexoL-300 100 ML VIAL IVP ONE (17:59)
[2023-11-04] MEDS: D5.45NS W/20 MEQ KCL 1,000 ML IV STA (18:27)
--- NOTE | 2023-11-04 18:28 | CT Report ---
PROCEDURE: Abdomen/Pelvis W INDICATIONS: IV only,abd pain CONTRAST: 100ml omni 300 TECHNIQUE: After the administration of intravenous contrast, a CT scan of the abdomen and pelvis was performed. Images were recorded and evaluated at appropriate window settings. Reformats: coronal and sagittal. F or radiation dose reduction, the following was used: automated exposure control, adjustment of mA and /or kV according to patient size. COMPARISON: Correlation is made with lumbar spine MRI, 11/14/2022. FINDINGS: Image quality: Diagnostic. Lower chest: Unremarkable. Liver: No solid mass. Gallbladder and biliary tree: Within normal limits. Spleen: No splenomegaly. Pancreas: No pancreatic ductal dilation. Adrenals: No adrenal nodule. Kidneys and ureters: No hydronephrosis. No renal cystic lesion which requires follow up. No solid mas s. Stomach, bowel and peritoneum: Dilated loops of small bowel can be seen proximally, measuring up to 4 .3 cm. The distal small bowel loops are decompressed. A transition point can be seen within the right mid abdomen, as on series 4 image 55. Moderate amount of ascites seen, including adjacent to the spleen and layering within the pelvis. The colon is relatively decompressed. Lymph nodes: No central or retroperitoneal adenopathy. Vessels: No infrarenal aortic aneurysm. Atherosclerotic calcification is seen. PELVIS Reproductive organs: Unremarkable. Bladder: No abnormal wall thickening, accounting for underdistention. Pelvic lymph nodes: No pelvic adenopathy by size criteria. Bones: No aggressive osseous abnormality. Mild dextroconvex scoliotic curvature is seen. Multiple le vels of significant lower spine degenerative change can be seen. This patient has transitional anatomy. For the purposes of this examination, the level with the most inferior ribs is considered to be T12. By this numbering scheme, the S1 level is transitional and is lumbarized on the left side. Other: No significant ventral or inguinal hernia. Prior right groin hernia repair. IMPRESSION: There is a small bowel obstruction seen, with a transition point seen within the right mid abdomen. There is a mild amount of ascites seen. 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
--- NOTE | 2023-11-04 18:50 | XRAY Report ---
PROCEDURE: No-Charge 1V Abdomen INDICATIONS: NGT placement TECHNIQUE: 1 view of the abdomen were acquired. COMPARISON: Correlation is made with the accompanying imaging. FINDINGS: Surgical changes and devices: The tip of the gastric tube can be seen overlying the fundus of the st omach. The sidehole is seen below the level of the diaphragm. Right groin hernia repair is partially seen. Bowel: No pneumoperitoneum. The bowel gas pattern is normal. Stool load within normal limits. Soft tissues: No masses; visualized solid organ contours appear normal in size. No suspicious abdom inal calcifications. Excreted contrast can be seen within the right renal collecting system. Bones: No suspicious bony abnormalities. Age-appropriate degenerative changes are seen. Mild dext roconvex scoliotic curvature is seen. IMPRESSION: The tip of the gastric tube can be seen overlying the fundus of the stomach, with the sidehole below the level of the diaphragm. Reviewed by: Dustin Romo MD on 11/04/2023 5:48 PM YAIR Approved by: Dustin Romo MD on 11/04/2023 5:48 PM YAIR Station ID: [id number]
[2023-11-04] MEDS ORDERED: SODIUM CHLORIDE FLUSH 0.9% 10 ML SYRINGE IVP PRN (19:24)
[2023-11-04] MEDS ORDERED: ONDANSETRON 4 MG/2 ML VIAL IVP PRN (19:24)
--- NOTE | 2023-11-04 19:32 | SURGERY HX AND PHYSICAL(T) ---
Surgical History & Physical - Chief Complaint/HPI Chief Complaint: abdominal pain, n/v History of Present Illness: Patient reports acute onset of upper abdominal pain associated with nausea and 5 episodes of nonbloody emesis today at 7 AM. His pain is sharp and constant in nature. It is made worse with palpation and activity. It was made better when the NG tube was placed and he was given pain medicine in the emergency department, but prior to this nothing had improved his pain. He had a similar episode of abdominal pain associated with nausea and vomiting last week which resolved within 24 hours. He has a history of bilateral inguinal hernia repairs, and no other intra-abdominal surgery. - PMH/PSH/Social Hx Does the pt have a hx of MRSA?: No Neurological History: None Eyes, Ears, Nose, Throat: None Cardiovascular: High cholesterol, Atrial fibrillation (Patient states he has been told he has atrial fibrillation in the past and has had a prior cardiac workup, but states this is greater than 5 years ago. He does not follow with cardiology.) Respiratory: Emphysema Skin: None Endocrine/Autoimmune: None Urinary: None Musculoskeletal: Osteoarthritis, Other (Restless leg syndrome) Blood Disorders: None Psychiatric: None General: Other (Bilateral inguinal hernia repair) Cardiothoracic: Other (Patient reports chest surgery to remove benign lung nodules) Smoking Status: Current every day smoker (1 pack/day, 50 pack years) Does the pt drink ETOH?: No Frequency: Occasional Does the pt have substance abuse?: No - Family Hx Family Hx: Unremarkable - Home Meds and Allergies Home Medications: Aspirin [Vazalore] 81 mg ORAL DAILY 03/15/23 Ropinirole HCl [Ropinirole ER] 8 mg ORAL DAILY PM 03/15/23 Rosuvastatin Calcium [Crestor] 10 mg ORAL DAILY PM 03/15/23 Gabapentin [Neurontin] 0 mg PO HS 11/04/23 Allergies/Adverse Reactions: Allergies Allergy/AdvReac Type Severity Reaction Status Date / Time No Known Drug Allergies Allergy Verified 11/04/23 17:01 - Review of Systems Constitutional: Other (A complete 10 point review of symptoms is otherwise negative except for that noted in HPI and PMH.) - Vital Signs Heart Rate: 96 Blood Pressure: 96/54 Temperature: 36.7 C Respiratory Rate: 18 O2 Saturation: 99 Weight (kg): 58.967 kg Height: 1.78 m - Physical Exam General Appearance: positive: Other Comments/Other: GEN: No acute distress, appears stated age, alert and oriented HEENT: NCAT, MMM, EOMI, NG in place with 300 mL of clear, bile tinged fluid in the canister since placement NEURO: CN II-XII grossly intact, no obvious focal deficits CV: Atrial fibrillation on the monitor, regular rate, no murmer appreciated PULM: CTAB, no wheezes appreciated, satting well on room air ABD: soft, with mild diffuse tenderness to palpation, slightly more in the right mid abdomen, no rebound or guarding, slight distention CIRCULATORY: Slight clubbing about bilateral upper extremities, no cyanosis or edema SKIN: no lesions appreciated LYMPH: no obvious lymphadenopathy MSK: 4/4 strength in all extremities PSYCH: Affect is appropriate - Patient Review Patient Review: Problems were reviewed with the patient during this visit. Medications were reviewed with the patient during this visit. Allergies were reviewed this patient during this visit. Pertinent Tests Reviewed: All pertitent test for this patient were reviewed. - Assessment & Plan Assessment and Plan: This is a 73-year-old gentleman with: 1. Small bowel obstruction I personally reviewed the images and report from the patient's CT scan done today. He does have moderately dilated proximal loops of small bowel with a transition point in the right mid abdomen. He also has some ascites, but no free air. -The most likely etiology of the patient's bowel obstruction is adhesions from prior surgery. The patient denies any history of liver pathology The patient denies any history of prior bowel obstruction, although he did have an episode of similar pain about a week ago which resolved spontaneously NG tube in place. Plan to decompress overnight, and likely small bowel follow-through study tomorrow. If his obstruction does not resolve with conservative management, he may require surgery (lap or open depending on distension at the time of surgery). I discussed the findings and plan of care with the patient and his , Marjorie, at bedside. He will remain n.p.o. until there are signs of resolution of his bowel obstruction, at which time we will his advance his diet. 2. Atrial fibrillation On initial evaluation in the emergency department, the patient's EKG demonstrated sinus rhythm. At the time of my evaluation, he is in atrial fibrillation on the monitor. I asked the emergency department provider to obtain a second EKG, and if this demonstrates atrial fibrillation to consult medicine for management of his atrial fibrillation, and cardiac risk stratification for possible surgery. 3. Tobaccoism, COPD I encouraged the patient to stop smoking 4. Hyperlipidemia, restless leg syndrome I will hold the patient's home medication while is n.p.o., and plan to restart when he is tolerating a diet Prophylaxis: SCDs for DVT prophylaxis The patient will be admitted under observation status at this time.
[2023-11-04] MEDS: MORPHINE 2 MG/ML CARPUJECT IVP PRN (20:25)
[2023-11-04] MEDS: LACTATED RINGERS 1,000 ML IV SCH (21:19)
[2023-11-05] MEDS: SODIUM CHLORIDE FLUSH 0.9% 10 ML SYRINGE IVP SCH (01:00)
[2023-11-05 05:50] LABS: HCT - HEMATOCRIT 51.6 % (42.0-52.0); HGB - HEMOGLOBIN 17.4 g/dL (14.0-18.0); MEAN CORPUSCULAR HEMOGLOBIN 32.3 pg (27.0-31.0); MEAN CORPUSCULAR HGB CONC 33.7 g/dL (32.0-36.0); MEAN CORPUSCULAR VOLUME 95.7 fL (80.0-94.0); MEAN PLATELET VOLUME 10.7 fL (7.4-11.4); RED BLOOD COUNT 5.39 10^6/uL (4.70-6.10); RED CELL DISTRIBUTION WIDTH 12.9 % (12.0-15.0); WHITE BLOOD COUNT 13.7 x10^3/uL (4.8-10.8)
[2023-11-05 06:49] LABS: CALCIUM 9.8 mg/dL (8.5-10.3); CREATININE 0.8 mg/dL (0.6-1.3); POTASSIUM 4.4 mmol/L (3.5-4.5)
--- NOTE | 2023-11-05 07:05 | PROVIDER PROGRESS NOTE ---
Subjective - General Admit Date: 11/04/23 - Other Other Information/Narrative: Crampy abdominal pain overnight, patient feels dilaudid worked better than morphine. No nausea or vomiting overnight. No flatus or BM. Objective - Patient Data Reviewed Vital Signs: Yes Vital Signs: Vital Signs x48h Temp Pulse Resp BP Pulse Ox 11/05/23 04:02 36.8 C 81 14 142/92 H 97 11/05/23 00:01 36.7 C 68 14 125/82 H 96 Weight: Weight 11/03/23 11/04/23 11/05/23 23:59 23:59 23:59 Weight (kg) 57.5 kg Intake & Output: Intake and Output Totals x24h 11/03/23 11/04/23 11/05/23 23:59 23:59 23:59 Intake Total 2310 Output Total 300 825 Balance -300 1485 - Lab Results Lab Results: 11/05/23 05:28 11/05/23 05:28 Other Lab Results: Lab Results x24hrs 11/05/23 11/05/23 11/04/23 Range/Units 05:28 05:28 18:45 WBC 13.7 H (4.8-10.8) x10^3/uL RBC 5.39 (4.70-6.10) 10^6/uL Hgb 17.4 (14.0-18.0) g/dL Hct 51.6 (42.0-52.0) % MCV 95.7 H (80.0-94.0) fL MCH 32.3 H (27.0-31.0) pg MCHC 33.7 (32.0-36.0) g/dL RDW 12.9 (12.0-15.0) % Plt Count 214 (130-450) 10^3/uL MPV 10.7 (7.4-11.4) fL Neut # (Auto) (1.5-6.6) 10^3/uL Lymph # (Auto) (1.5-3.5) 10^3/uL [place] # (Auto) (0.0-1.0) 10^3/uL Eos # (Auto) (0.0-0.7) 10^3/uL Baso # (Auto) (0.0-0.1) 10^3/uL Absolute Nucleated RBC x10^3/uL Nucleated RBC % /100WBC Sodium 138 (135-145) mmol/L Potassium 4.4 (3.5-4.5) mmol/L Chloride 98 L (101-111) mmol/L Carbon Dioxide 33 H (21-32) mmol/L Anion Gap 7.0 (6-13) BUN 16 (6-20) mg/dL Creatinine 0.8 (0.6-1.3) mg/dL Estimated GFR (MDRD) 95 (>89) Glucose 115 H (74-104) mg/dL Lactic Acid 0.7 (0.5-2.2) mmol/L Calcium 9.8 (8.5-10.3) mg/dL Total Bilirubin (0.2-1.0) mg/dL AST (10-42) IU/L ALT (10-60) IU/L Alkaline Phosphatase (42-121) IU/L Total Protein (6.4-8.9) g/dL Albumin (3.2-5.5) g/dL Globulin (2.1-4.2) g/dL Albumin/Globulin Ratio (1.0-2.2) Lipase (11-82) U/L Urine Color Urine Clarity (CLEAR) Urine pH (5.0-7.5) PH Ur Specific [place] (1.002-1.030) Urine Protein (NEGATIVE) mg/dL Urine Glucose (UA) (NEGATIVE) mg/dL Urine Ketones (NEGATIVE) mg/dL Urine Occult Blood (NEGATIVE) Urine Nitrite (NEGATIVE) Urine Bilirubin (NEGATIVE) Urine Urobilinogen (NORMAL) E.U./dL Ur Leukocyte Esterase (NEGATIVE) Ur Microscopic Review Urine Culture Comments 11/04/23 11/04/23 11/04/23 Range/Units 17:15 17:12 17:12 WBC 11.7 H (4.8-10.8) x10^3/uL RBC 5.34 (4.70-6.10) 10^6/uL Hgb 16.9 (14.0-18.0) g/dL Hct 51.5 (42.0-52.0) % MCV 96.4 H (80.0-94.0) fL MCH 31.6 H (27.0-31.0) pg MCHC 32.8 (32.0-36.0) g/dL RDW 13.1 (12.0-15.0) % Plt Count 225 (130-450) 10^3/uL MPV 10.2 (7.4-11.4) fL Neut # (Auto) 9.8 H (1.5-6.6) 10^3/uL Lymph # (Auto) 1.2 L (1.5-3.5) 10^3/uL [place] # (Auto) 0.5 (0.0-1.0) 10^3/uL Eos # (Auto) 0.0 (0.0-0.7) 10^3/uL Baso # (Auto) 0.0 (0.0-0.1) 10^3/uL Absolute Nucleated RBC 0.00 x10^3/uL Nucleated RBC % 0.0 /100WBC Sodium 134 L (135-145) mmol/L Potassium 4.2 (3.5-4.5) mmol/L Chloride 97 L (101-111) mmol/L Carbon Dioxide 30 (21-32) mmol/L Anion Gap 7.0 (6-13) BUN 20 (6-20) mg/dL Creatinine 0.8 (0.6-1.3) mg/dL Estimated GFR (MDRD) 95 (>89) Glucose 118 H (74-104) mg/dL Lactic Acid (0.5-2.2) mmol/L Calcium 10.4 H (8.5-10.3) mg/dL Total Bilirubin 0.6 (0.2-1.0) mg/dL AST 28 (10-42) IU/L ALT 22 (10-60) IU/L Alkaline Phosphatase 64 (42-121) IU/L Total Protein 7.3 (6.4-8.9) g/dL Albumin 4.6 (3.2-5.5) g/dL Globulin 2.7 (2.1-4.2) g/dL Albumin/Globulin Ratio 1.7 (1.0-2.2) Lipase 20 (11-82) U/L Urine Color YELLOW Urine Clarity CLEAR (CLEAR) Urine pH 5.5 (5.0-7.5) PH Ur Specific [place] >=1.030 H (1.002-1.030) Urine Protein NEGATIVE (NEGATIVE) mg/dL Urine Glucose (UA) NEGATIVE (NEGATIVE) mg/dL Urine Ketones 15 H (NEGATIVE) mg/dL Urine Occult Blood NEGATIVE (NEGATIVE) Urine Nitrite NEGATIVE (NEGATIVE) Urine Bilirubin NEGATIVE (NEGATIVE) Urine Urobilinogen 0.2 (NORMAL) (NORMAL) E.U./dL Ur Leukocyte Esterase NEGATIVE (NEGATIVE) Ur Microscopic Review NOT INDICATED Urine Culture Comments NOT INDICATED - Imaging Results Imaging Results Comments: abd xr pending this AM to confirm NG placement - Current Medications Current Medications: Current Medications Generic Name Dose Route Start Last Admin Trade Name Wally PRN Reason Stop Dose Admin Lactated Ringer's 1,000 mls @ 125 mls/hr 11/04/23 20:00 11/05/23 05:34 Lr IV 125 mls/hr .Q8H ANEESH Administration Sodium Chloride 10 ml 11/05/23 01:00 11/05/23 01:00 Sodium Chloride Flush 0.9% 10 Ml Syringe IVP 10 ml 0100,0900,1700 ANEESH Administration - Physical Exam Comments/Other: Gen: mild distress due to pain, alert and oriented CV: irregular rhythm, regular rate this AM, a fib confirmed on EKG in ED last night Pulm: non labored, on RA Abd: moderately distended, soft, mild diffuse ttp with moderate ttp in right mid and lower abdomen, no r/g Ext: no edema Impression/Plan - Problem List Problem List: This is a 73-year-old gentleman with: 1. Small bowel obstruction -The most likely etiology of the patient's bowel obstruction is adhesions from prior surgery. The patient denies any history of prior bowel obstruction, although he did have an episode of similar pain about a week ago which resolved spontaneously NG tube in place. Confirm NG position this AM, then likely small bowel follow-through study today. If his obstruction does not resolve with conservative management, he may require surgery (lap or open depending on distension at the time of surgery). He will remain n.p.o. until there are signs of resolution of his bowel obstruction, at which time we will his advance his diet. 2. Atrial fibrillation On initial evaluation in the emergency department, the patient's EKG demonstrated sinus rhythm. At the time of my evaluation, he is in atrial fibrillation on the monitor, confirmed on repeat EKG. Patient states he had a cardiac workup at "many years ago" and does not follow with cardiology. I will consult medicine this morning for cardiac risk stratification for possible surgery. 3. Tobaccoism, COPD I encouraged the patient to stop smoking 4. Hyperlipidemia, restless leg syndrome I will hold the patient's home medication while is n.p.o., and plan to restart when he is tolerating a diet Prophylaxis: SCDs for DVT prophylaxis, pepcid for GI ppx The patient is under observation status at this time.
[2023-11-05] MEDS: HYDROmorphone 0.5 MG/0.5 ML SYRINGE IVP PRN (07:36)
[2023-11-05] MEDS ORDERED: DIATRIZOATE MEGLU/DIATRIZO SOD 30 ML BOTTLE PO ONE (10:18)
[2023-11-05] MEDS: DIATRIZOATE MEGLU/DIATRIZO SOD 30 ML BOTTLE PO ONE (10:58)
--- NOTE | 2023-11-05 15:20 | XRAY Report ---
PROCEDURE: Abdomen 2 V INDICATIONS: NG position TECHNIQUE: 2 views of the abdomen were acquired. COMPARISON: Abdomen x-ray 11/04/2023 FINDINGS: Surgical changes and devices: Nasogastric tube is projecting below the left hemidiaphragm. Bowel: No pneumoperitoneum. The bowel gas pattern demonstrates dilated fluid-filled loops of bowel, appearing more prominent. Stool load within normal limits. Soft tissues: No masses; visualized solid organ contours appear normal in size. No suspicious abdom inal calcifications. Bones: No suspicious bony abnormalities. IMPRESSION: Nasogastric tube in appropriate position. Dilated fluid-filled loops of small bowel consistent with known partial small bowel obstruction felt to be slightly more prominent. Reviewed by: Jil No MD on 11/05/2023 3:19 PM PDT Approved by: Jil No MD on 11/05/2023 3:19 PM PDT Station ID: [id number]
--- NOTE | 2023-11-05 15:24 | PHARMACY PROGRESS NOTE ---
- Best Possible Medication History Admit Date and Time: 11/05/23 1236 Processed by: Pharmacy Medications reviewed in ED?: Yes Medication History completed: Yes Patient Interview: Completed Secondary Source(s): Spouse/Significant other, Insurance records As the person ultimately responsible for medication therapy, providers are able to order a medication from an existing home medication list in [facility] via the "Reconcile Routine" prior to Confirmation of that medication by forestry support specialist. Such practice is discouraged except when the physician, in their clinical judgment, deems that a medical need exists for a medication without regard to previous use.
[2023-11-05] MEDS: PHENOL THROAT SPRAY 177 ML MM PRN (18:01)
[2023-11-05] MEDS: METOPROLOL TARTRATE 25 MG TABLET PO SCH (18:02)
--- NOTE | 2023-11-05 20:28 | CONSULTATION NOTE ---
Chief Complaint - Chief Complaint Chief Complaint: Small Bowel Obstruction History - Past Medical History Cardiovascular: reports: None Respiratory: reports: Emphysema, Other Neuro: reports: None Endocrine/Autoimmune: reports: None : reports: None HEENT: reports: None Psych: reports: None Musculoskeletal: reports: Osteoarthritis Derm: reports: None MRSA Hx?: No - Past Surgical History General: reports: Colonoscopy, Other Cardiovascular: reports: Other HEENT: reports: Cataracts - Family & Social History Living Situation: With spouse/s.o. Meds/Allgy - Home Medications Home Medications: Ambulatory Orders Medication Instructions Recorded Confirmed Rosuvastatin Calcium [Crestor] 10 mg PO QPM 03/15/23 11/05/23 Aspirin Chewable [St Mehran 81 mg PO DAILY 11/05/23 11/05/23 Aspirin] Gabapentin [Neurontin] 100 mg PO QPM 11/05/23 11/05/23 rOPINIRole [Requip] 4 mg PO 1900,2200 11/05/23 11/05/23 - Allergies Allergies/Adverse Reactions: Allergies Allergy/AdvReac Type Severity Reaction Status Date / Time No Known Drug Allergies Allergy Verified 11/04/23 17:01 Exam - Vital Signs Vital Signs: Vital Signs x48h Temp Pulse Resp BP BP Pulse Ox 11/05/23 18:02 181/89 H 11/05/23 17:38 97 18 149/84 H 97 11/05/23 16:00 36.7 C 88 16 148/90 H 95 - Physical Exam General Appearance: positive: No acute distress, Alert Eyes Bilateral: positive: Normal inspection, Conjunctivae nml Neck: positive: Thyroid nml, No JVD, Trachea midline Respiratory: positive: Other Cardiovascular: positive: Other Abdomen: positive: Other Skin: positive: No rash Extremities: positive: Non-tender, No pedal edema Conclusion/Plan - Problem List (1) Small bowel obstruction Conclusion/Plan: I was asked to see Mr. Cain by Dr. Alegria for a perioperative risk assessment. It appears that Mr. Jeffers currently is in atrial fibrillation. Recommend attempting rate control prior to surgery if possible.His [id number] score is 3. I would recommend obtaining an echocardiogram and anticoagulation once his small bowel obstruction resolves. If he is taken to surgery, recommend anticoagulation postoperatively when surgery feels it is safe. Recommend attempt for rate control with metoprolol initiating treatment with 5 mg intravenously every 4 hours and increasing to 10 mg every 4 hours if as tolerated. Alternatively, patient could be started on esmolol or diltiazem drip. If his small bowel obstruction resolves, treatment can be initiated with medication by mouth. His perioperative pulmonary risk is moderate. Recommend aggressive pulmonary toilet in the perioperative period with incentive spirometry and flutter valve. - Lab Results Fish Bones: 11/05/23 05:28 11/05/23 05:28
[2023-11-05] MEDS: METOPROLOL 5 MG/5 ML VIAL IVP SCH (20:43)
[2023-11-06 06:02] LABS: BASOPHILS % (AUTO) 0.3 %; EOSINOPHILS % (AUTO) 1.1 %; HCT - HEMATOCRIT 56.2 % (42.0-52.0); HGB - HEMOGLOBIN 18.7 g/dL (14.0-18.0); LYMPHOCYTES % (AUTO) 10.9 %; MEAN CORPUSCULAR HEMOGLOBIN 32.4 pg (27.0-31.0); MEAN CORPUSCULAR HGB CONC 33.3 g/dL (32.0-36.0); MEAN CORPUSCULAR VOLUME 97.2 fL (80.0-94.0); MEAN PLATELET VOLUME 10.4 fL (7.4-11.4); MONOCYTES % (AUTO) 10.6 %; NEUTROPHILS % (AUTO) 76.6 %; PLT - PLATELET COUNT 248 10^3/uL (130-450); RED BLOOD COUNT 5.78 10^6/uL (4.70-6.10); RED CELL DISTRIBUTION WIDTH 13.3 % (12.0-15.0); WHITE BLOOD COUNT 16.1 x10^3/uL (4.8-10.8)
[2023-11-06 06:09] LABS: CALCIUM 10.3 mg/dL (8.5-10.3); CREATININE 0.9 mg/dL (0.6-1.3); MAGNESIUM 1.9 mg/dL (1.7-2.3); PHOSPHORUS 4.4 mg/dL (2.5-5.0); POTASSIUM 4.4 mmol/L (3.5-4.5)
[2023-11-06 06:12] LABS: ABNORMAL LYMPHS % (MANUAL) 0 %
[2023-11-06 06:42] LABS: BAND NEUTROPHILS % (MANUAL) 2 %; DIFFERENTIAL COMMENT MANUAL DIFFERENTIAL; EOSINOPHILS # (MANUAL) 0.2 10^3/uL (0-0.7); LYMPHOCYTES # (MANUAL) 2.3 10^3/uL (1.5-3.5); LYMPHOCYTES % (MANUAL) 14 %; MONOCYTES # (MANUAL) 1.9 10^3/uL (0.0-1.0); NEUTROPHILS # (MANUAL) 11.8 10^3/uL (1.5-6.6); PLATELET ESTIMATE, MANUAL NORMAL (130-450,000) (NORMAL); RBC MORPHOLOGY (MULTIPLE) NORMAL APPEARANCE (NORMAL)
--- NOTE | 2023-11-06 07:14 | PROVIDER PROGRESS NOTE ---
Subjective - General Admit Date: 11/05/23 - Other Other Information/Narrative: Pain controlled this AM, markedly improved with NG returned to suction last night. No nausea this AM. Patient was able to get some rest last night. No flatus or BM. Objective - Patient Data Vital Signs: Vital Signs x48h Temp Pulse Resp BP BP Pulse Ox 11/06/23 06:02 92 157/117 H 11/06/23 05:47 90 145/90 H 11/06/23 05:32 98 157/100 H 11/06/23 05:27 106 H 159/92 H 11/06/23 05:22 36.5 C 94 16 141/91 H 95 11/06/23 05:13 142/91 H 11/06/23 02:09 87 124/73 11/06/23 01:50 96 121/79 11/06/23 01:35 96 123/80 11/06/23 01:20 79 123/78 11/06/23 01:15 96 125/82 H 11/06/23 01:10 102 H 133/87 H 11/06/23 01:09 125/88 H 11/06/23 01:05 103 H 125/88 H 11/06/23 00:00 36.7 C 56 L 18 138/82 H 95 Weight: Weight 11/04/23 11/05/23 11/06/23 23:59 23:59 23:59 Weight (kg) 57.5 kg Intake & Output: Intake and Output Totals x24h 11/04/23 11/05/23 11/06/23 23:59 23:59 23:59 Intake Total 4390 1000 Output Total 300 1625 Balance -300 2765 1000 - Lab Results Lab Results: 11/06/23 05:36 11/06/23 05:36 Other Lab Results: Lab Results x24hrs 11/06/23 11/06/23 11/05/23 Range/Units 05:36 05:36 05:28 WBC 16.1 H (4.8-10.8) x10^3/uL RBC 5.78 (4.70-6.10) 10^6/uL Hgb 18.7 H (14.0-18.0) g/dL Hct 56.2 H (42.0-52.0) % MCV 97.2 H (80.0-94.0) fL MCH 32.4 H (27.0-31.0) pg MCHC 33.3 (32.0-36.0) g/dL RDW 13.3 (12.0-15.0) % Plt Count 248 (130-450) 10^3/uL MPV 10.4 (7.4-11.4) fL Neut # (Auto) Not Reportable Lymph # (Auto) Not Reportable [place] # (Auto) Not Reportable Eos # (Auto) Not Reportable Baso # (Auto) Not Reportable Absolute Nucleated RBC Not Reportable Total Counted 100 Band Neuts % (Manual) 2 (0 - 10) % Abnorm Lymph % (Manual) 0 % Nucleated RBC % Not Reportable Neutrophils # (Manual) 11.8 H (1.5-6.6) 10^3/uL Lymphocytes # (Manual) 2.3 (1.5-3.5) 10^3/uL Monocytes # (Manual) 1.9 H (0.0-1.0) 10^3/uL Eosinophils # (Manual) 0.2 (0-0.7) 10^3/uL Basophils # (Manual) 0.0 (0-0.1) 10^3/uL Differential Comment MANUAL DIFFERENTIAL Platelet Estimate NORMAL (130-450,000) (NORMAL) RBC Morph Micro Appear NORMAL APPEARANCE (NORMAL) Sodium 139 (135-145) mmol/L Potassium 4.4 (3.5-4.5) mmol/L Chloride 95 L (101-111) mmol/L Carbon Dioxide 35 H (21-32) mmol/L Anion Gap 9.0 (6-13) BUN 21 H (6-20) mg/dL Creatinine 0.9 (0.6-1.3) mg/dL Estimated GFR (MDRD) 83 L (>89) Glucose 113 H (74-104) mg/dL Calcium 10.3 (8.5-10.3) mg/dL Phosphorus 4.4 (2.5-5.0) mg/dL Magnesium 1.9 (1.7-2.3) mg/dL TSH 2.41 (0.34-5.60) uIU/mL - Current Medications Current Medications: Current Medications Generic Name Dose Route Start Last Admin Trade Name Freq PRN Reason Stop Dose Admin Hydromorphone HCl 0.5 mg 05/06/24 06:58 11/06/23 03:30 Hydromorphone 0.5 Mg/0.5 Ml Syringe IVP 0.5 mg Q2H PRN Administration Severe Pain (Level 7-10) Lactated Ringer's 1,000 mls @ 125 mls/hr 11/04/23 20:00 11/06/23 06:44 Lr IV 125 mls/hr .Q8H ANEESH Administration Metoprolol Tartrate 5 mg 11/05/23 21:00 11/06/23 05:13 Metoprolol 5 Mg/5 Ml Vial IVP 5 mg Q4H ANEESH Administration Phenol/Menthol 2 sprays 11/04/23 19:24 11/05/23 18:01 Phenol Throat [place] 177 Ml MM 2 sprays Q1H PRN Administration PAIN Sodium Chloride 10 ml 11/05/23 01:00 11/06/23 01:08 Sodium Chloride Flush 0.9% 10 Ml Syringe IVP Not Given 0100,0900,1700 [facility] Impression/Plan - Problem List Problem List: This is a 73-year-old gentleman with: 1. Small bowel obstruction - The most likely etiology of the patient's bowel obstruction is adhesions from prior surgery. The patient denies any history of prior bowel obstruction, although he did have an episode of similar pain about a week prior to admission which resolved spontaneously NG tube in place, 1200mL recorded out in last 24 hours. - KUB consistent with persistent obstruction this AM. No movement of contrast out of the stomach on SBFT yesterday. He will remain n.p.o. until there are signs of resolution of his bowel obstruction, at which time we will his advance his diet. - Patient appears to be failing conservative management. After discussion with medicine team (Dr. Meyers), echocardiogram for cardiac risk stratification is felt to be helpful prior to proceeding with surgery. Will continue NG suction and await results of echo. Likely surgery tomorrow. 2. Atrial fibrillation On initial evaluation in the emergency department, the patient's EKG demonstrated sinus rhythm. At the time of my evaluation, he is in atrial fibrillation on the monitor, confirmed on repeat EKG. Patient states he had a cardiac workup at "many years ago" and does not follow with cardiology. - medicine consulted yesterday for cardiac risk stratification for possible surgery. Patient also had an episode of symptomatic a fib yesterday, started on metoprolol for rate control. Holding anticoagulation until after surgery. Echo pending as above. 3. Tobaccoism, COPD I encouraged the patient to stop smoking 4. Hyperlipidemia, restless leg syndrome I will hold the patient's home medication while is n.p.o., and plan to restart when he is tolerating a diet Prophylaxis: SCDs for DVT prophylaxis, pepcid for GI ppx The patient has been transitioned to inpatient status.
[2023-11-06] MEDS: LACTATED RINGERS 1,000 ML IV ONE (07:59)
--- NOTE | 2023-11-06 08:56 | XRAY Report ---
PROCEDURE: SBFT Challenge Panel INDICATIONS: obstruction COMPARISON: CT abdomen and pelvis dated 11/04/2023 CONTRAST: Oral contrast administered via nasogastric tube FLUOROSCOPY TIME: Dose area product measuring 357.45 uGy*m2 FINDINGS: KUB: Preprocedural curriculum writer film demonstrates persistent obstructive bowel gas pattern with scattered l oops of air-filled, dilated small bowel similar to that seen on comparison CT. Oral contrast noted in the stomach. No suspicious abdominal calcifications. Visualized solid organ contours appear normal. No suspicious bony abnormalities. Mesh coils noted in the right lower abdomen likely from prior her sugar repair. Small bowel: Over the course of approximately 24 hours, oral contrast remained within the stomach wit hout transit into the small bowel or colon. Unchanged appearance of diffusely scattered dilated air-f illed small bowel. Of note, suction was turned on prior to obtaining the final image which demonstrat ed decreased amount of oral contrast within the stomach. IMPRESSION: No transit of administered oral contrast from the stomach throughout the duration of the evaluation. Persistent dilated loops of air-filled small bowel seen throughout the abdomen compatible with small bowel obstruction. Reviewed by: Osiel Ferrell MD on 11/06/2023 8:55 AM PDT Approved by: Osiel Ferrell MD on 11/06/2023 8:55 AM PDT Station ID: [id number]
[2023-11-06] MEDS: METOPROLOL 5 MG/5 ML VIAL IVP SCH (13:35)
[2023-11-06] MEDS: MAGNESIUM SULFATE 2 GRAM 2 GM/50 ML BAG IV ONE (13:36)
--- NOTE | 2023-11-06 15:27 | PROVIDER PROGRESS NOTE ---
Assessment/Plan - Problem List (1) Small bowel obstruction Assessment/Plan: Small bowel obstruction is unresolved. Continue NG suction. Patient may go to surgery tomorrow. (2) Atrial Fibrillation Assessment/Plan: Rate control with IV metoprolol. If IV metoprolol fails, consider esmolol. Echocardiogram has been completed but report is pending at this time. (3) COPD Assessment/Plan: Encourage use of incentive spirometer on an hourly basis during daylight hours from 8 AM to 6 PM. (4) Tobacco Dependence Assessment/Plan: Patient counseled to stop smoking. - Current Meds Current Meds: Current Medications Generic Name Dose Route Start Last Admin Trade Name Freq PRN Reason Stop Dose Admin Hydromorphone HCl 0.5 mg 11/05/23 06:58 11/06/23 13:36 Hydromorphone 0.5 Mg/0.5 Ml Syringe IVP 0.5 mg Q2H PRN Administration Severe Pain (Level 7-10) Lactated Ringer's 1,000 mls @ 125 mls/hr 11/04/23 20:00 11/06/23 06:44 Lr IV 125 mls/hr .Q8H ANEESH Administration Metoprolol Tartrate 10 mg 11/06/23 13:16 11/06/23 13:35 Metoprolol 5 Mg/5 Ml Vial IVP 10 mg Q4H ANEESH Administration Phenol/Menthol 2 sprays 11/04/23 19:24 11/05/23 18:01 Phenol Throat [place] 177 Ml MM 2 sprays Q1H PRN Administration PAIN Sodium Chloride 10 ml 11/05/23 01:00 11/06/23 09:01 Sodium Chloride Flush 0.9% 10 Ml Syringe IVP 10 ml 0100,0900,1700 ANEESH Administration - Lab Result Fish Bone Diagrams: 11/06/23 05:36 11/06/23 05:36 - Additional Planning My Orders: My Active Orders 11/05/23 16:56 Telemetry- [RC] Q4HR 11/06/23 13:16 Metoprolol Inj [Lopressor Inj] 10 mg IVP Q4H 11/06/23 15:20 Incentive Spirometry - RT [RC] TID 11/06/23 16:00 hydrALAZINE INJ [Apresoline Inj] 10 mg IVP Q6H Subjective - Subjective Patient Reports: Other (Alert. Denies chest pain and shortness of breath. Continues to complain of abdominal bloating and occasional pain. No other complaints at this time.) Objective Vital Signs: Vital Signs - 24 hr 11/05/23 11/05/23 11/05/23 16:00 17:38 18:02 Temperature 36.7 C Heart Rate [ 88 97 Brachial] Respiratory 16 18 Rate Blood Pressure 181/89 H Blood Pressure 148/90 H 149/84 H [Right Brachial artery] O2 Saturation 95 97 11/05/23 11/05/23 11/06/23 20:43 20:44 00:00 Temperature 36.6 C 36.7 C Heart Rate [ 95 56 L Brachial] Respiratory 16 18 Rate Blood Pressure 126/83 H Blood Pressure 124/86 H 138/82 H [Right Brachial artery] O2 Saturation 92 95 11/06/23 11/06/23 11/06/23 01:05 01:09 01:10 Temperature Heart Rate [ 103 H 102 H Brachial] Respiratory Rate Blood Pressure 125/88 H Blood Pressure 125/88 H 133/87 H [Right Brachial artery] O2 Saturation 11/06/23 11/06/23 11/06/23 01:15 01:20 01:35 Temperature Heart Rate [ 96 79 96 Brachial] Respiratory Rate Blood Pressure Blood Pressure 125/82 H 123/78 123/80 [Right Brachial artery] O2 Saturation 11/06/23 11/06/23 11/06/23 01:50 02:09 05:13 Temperature Heart Rate [ 96 87 Brachial] Respiratory Rate Blood Pressure 142/91 H Blood Pressure 121/79 124/73 [Right Brachial artery] O2 Saturation 11/06/23 11/06/23 11/06/23 05:22 05:27 05:32 Temperature 36.5 C Heart Rate [ 94 106 H 98 Brachial] Respiratory 16 Rate Blood Pressure Blood Pressure 141/91 H 159/92 H 157/100 H [Right Brachial artery] O2 Saturation 95 11/06/23 11/06/23 11/06/23 05:47 06:02 08:29 Temperature 36.5 C Heart Rate [ 90 92 78 Brachial] Respiratory 18 Rate Blood Pressure Blood Pressure 145/90 H 157/117 H 147/81 H [Right Brachial artery] O2 Saturation 95 11/06/23 11/06/23 09:00 13:35 Temperature Heart Rate [ Brachial] Respiratory Rate Blood Pressure 147/81 H 155/99 H Blood Pressure [Right Brachial artery] O2 Saturation Oxygen O2 Source Room air I&O (Last 24 Hrs): Intake and Output Totals x24h 11/04/23 11/05/23 11/06/23 23:59 23:59 23:59 Intake Total 4390 1000 Output Total 300 1625 Balance -300 2765 1000 General: Alert, Oriented x3, No acute distress Neck: Supple, No JVD Neuro: Alert, Non Focal Cardiovascular: Other (Positive S1-S2 no extra heart sounds irregular regular) Respiratory: Other (Good air exchange in all lung collier no wheezing no crackles.) Extremities: No cyanosis, No edema Skin: No rashes - Results Results: Laboratory Results WBC 16.1 x10^3/uL (4.8-10.8) H 11/06/23 05:36 RBC 5.78 10^6/uL (4.70-6.10) 11/06/23 05:36 Hgb 18.7 g/dL (14.0-18.0) H 11/06/23 05:36 Hct 56.2 % (42.0-52.0) H 11/06/23 05:36 MCV 97.2 fL (80.0-94.0) H 11/06/23 05:36 MCH 32.4 pg (27.0-31.0) H 11/06/23 05:36 MCHC 33.3 g/dL (32.0-36.0) 11/06/23 05:36 RDW 13.3 % (12.0-15.0) 11/06/23 05:36 Plt Count 248 10^3/uL (130-450) 11/06/23 05:36 MPV 10.4 fL (7.4-11.4) 11/06/23 05:36 Neut # (Auto) Not Reportable 11/06/23 05:36 Lymph # (Auto) Not Reportable 11/06/23 05:36 [place] # (Auto) Not Reportable 11/06/23 05:36 Eos # (Auto) Not Reportable 11/06/23 05:36 Baso # (Auto) Not Reportable 11/06/23 05:36 Absolute Nucleated RBC Not Reportable 11/06/23 05:36 Total Counted 100 11/06/23 05:36 Band Neuts % (Manual) 2 % (0-10) 11/06/23 05:36 Abnorm Lymph % (Manual) 0 % 11/06/23 05:36 Nucleated RBC % Not Reportable 11/06/23 05:36 Neutrophils # (Manual) 11.8 10^3/uL (1.5-6.6) H 11/06/23 05:36 Lymphocytes # (Manual) 2.3 10^3/uL (1.5-3.5) 11/06/23 05:36 Monocytes # (Manual) 1.9 10^3/uL (0.0-1.0) H 11/06/23 05:36 Eosinophils # (Manual) 0.2 10^3/uL (0-0.7) 11/06/23 05:36 Basophils # (Manual) 0.0 10^3/uL (0-0.1) 11/06/23 05:36 Differential Comment MANUAL DIFFERENTIAL 11/06/23 05:36 Platelet Estimate NORMAL (130-450,000) (NORMAL) 11/06/23 05:36 RBC Morph Micro Appear NORMAL APPEARANCE (NORMAL) 11/06/23 05:36 Sodium 139 mmol/L (135-145) 11/06/23 05:36 Potassium 4.4 mmol/L (3.5-4.5) 11/06/23 05:36 Chloride 95 mmol/L (101-111) L 11/06/23 05:36 Carbon Dioxide 35 mmol/L (21-32) H 11/06/23 05:36 Anion Gap 9.0 (6-13) 11/06/23 05:36 BUN 21 mg/dL (6-20) H 11/06/23 05:36 Creatinine 0.9 mg/dL (0.6-1.3) 11/06/23 05:36 Estimated GFR (MDRD) 83 (>89) L 11/06/23 05:36 Glucose 113 mg/dL (74-104) H 11/06/23 05:36 Lactic Acid 0.7 mmol/L (0.5-2.2) 11/04/23 18:45 Calcium 10.3 mg/dL (8.5-10.3) 11/06/23 05:36 Phosphorus 4.4 mg/dL (2.5-5.0) 11/06/23 05:36 Magnesium 1.9 mg/dL (1.7-2.3) 11/06/23 05:36 Total Bilirubin 0.6 mg/dL (0.2-1.0) 11/04/23 17:12 AST 28 IU/L (10-42) 11/04/23 17:12 ALT 22 IU/L (10-60) 11/04/23 17:12 Alkaline Phosphatase 64 IU/L (42-121) 11/04/23 17:12 Total Protein 7.3 g/dL (6.4-8.9) 11/04/23 17:12 Albumin 4.6 g/dL (3.2-5.5) 11/04/23 17:12 Globulin 2.7 g/dL (2.1-4.2) 11/04/23 17:12 Albumin/Globulin Ratio 1.7 (1.0-2.2) 11/04/23 17:12 Lipase 20 U/L (11-82) 11/04/23 17:12 TSH 2.41 uIU/mL (0.34-5.60) 11/05/23 05:28 Urine Color YELLOW 11/04/23 17:15 Urine Clarity CLEAR (CLEAR) 11/04/23 17:15 Urine pH 5.5 PH (5.0-7.5) 11/04/23 17:15 Ur Specific [place] >=1.030 (1.002-1.030) H 11/04/23 17:15 Urine Protein NEGATIVE mg/dL (NEGATIVE) 11/04/23 17:15 Urine Glucose (UA) NEGATIVE mg/dL (NEGATIVE) 11/04/23 17:15 Urine Ketones 15 mg/dL (NEGATIVE) H 11/04/23 17:15 Urine Occult Blood NEGATIVE (NEGATIVE) 11/04/23 17:15 Urine Nitrite NEGATIVE (NEGATIVE) 11/04/23 17:15 Urine Bilirubin NEGATIVE (NEGATIVE) 11/04/23 17:15 Urine Urobilinogen 0.2 (NORMAL) E.U./dL (NORMAL) 11/04/23 17:15 Ur Leukocyte Esterase NEGATIVE (NEGATIVE) 11/04/23 17:15 Ur Microscopic Review NOT INDICATED 11/04/23 17:15 Urine Culture Comments NOT INDICATED 11/04/23 17:15
[2023-11-06] MEDS: hydrALAZINE INJ 20 MG/ML VIAL IVP SCH (15:38)
[2023-11-07 05:40] LABS: BASOPHILS % (AUTO) 0.3 %; EOSINOPHILS # (AUTO) 0.2 10^3/uL (0.0-0.7); EOSINOPHILS % (AUTO) 1.5 %; HCT - HEMATOCRIT 48.7 % (42.0-52.0); HGB - HEMOGLOBIN 15.9 g/dL (14.0-18.0); LYMPHOCYTES # (AUTO) 1.1 10^3/uL (1.5-3.5); LYMPHOCYTES % (AUTO) 8.8 %; MEAN CORPUSCULAR HEMOGLOBIN 31.5 pg (27.0-31.0); MEAN CORPUSCULAR HGB CONC 32.6 g/dL (32.0-36.0); MEAN CORPUSCULAR VOLUME 96.4 fL (80.0-94.0); MEAN PLATELET VOLUME 10.3 fL (7.4-11.4); MONOCYTES # (AUTO) 1.3 10^3/uL (0.0-1.0); MONOCYTES % (AUTO) 10.7 %; NEUTROPHILS # (AUTO) 9.4 10^3/uL (1.5-6.6); NEUTROPHILS % (AUTO) 78.3 %; PLT - PLATELET COUNT 222 10^3/uL (130-450); RED BLOOD COUNT 5.05 10^6/uL (4.70-6.10); RED CELL DISTRIBUTION WIDTH 13.2 % (12.0-15.0)
[2023-11-07 05:58] LABS: CALCIUM 9.4 mg/dL (8.5-10.3); CREATININE 0.8 mg/dL (0.6-1.3); MAGNESIUM 1.9 mg/dL (1.7-2.3); PHOSPHORUS 3.5 mg/dL (2.5-5.0)
--- NOTE | 2023-11-07 12:46 | PROVIDER PROGRESS NOTE ---
Subjective - General Admit Date: 11/05/23 - Other Other Information/Narrative: Pain controlled, still having abdominal bloating and cramping. Throat sore from NG. Patient taking ice chips and chloraseptic in small amounts. No flatus, no BM. Overall, feels about the same and ready to have surgery to feel better. Objective - Patient Data Reviewed Vital Signs: Yes Vital Signs: Vital Signs x48h Temp Pulse Resp BP BP Pulse Ox 11/07/23 09:40 119/78 11/07/23 09:00 135/82 H 11/07/23 07:57 36.8 C 85 16 131/76 H 94 11/07/23 07:00 36.7 C 75 16 136/84 H 93 Intake & Output: Intake and Output Totals x24h 11/05/23 11/06/23 11/07/23 23:59 23:59 23:59 Intake Total 4390 3100 2071.25 Output Total 1625 350 900 Balance 2765 2750 1171.25 - Lab Results Lab Results: 11/07/23 05:32 11/07/23 05:32 Other Lab Results: Lab Results x24hrs 11/07/23 11/07/23 Range/Units 05:32 05:32 WBC 12.0 H (4.8-10.8) x10^3/uL RBC 5.05 (4.70-6.10) 10^6/uL Hgb 15.9 (14.0-18.0) g/dL Hct 48.7 (42.0-52.0) % MCV 96.4 H (80.0-94.0) fL MCH 31.5 H (27.0-31.0) pg MCHC 32.6 (32.0-36.0) g/dL RDW 13.2 (12.0-15.0) % Plt Count 222 (130-450) 10^3/uL MPV 10.3 (7.4-11.4) fL Neut # (Auto) 9.4 H (1.5-6.6) 10^3/uL Lymph # (Auto) 1.1 L (1.5-3.5) 10^3/uL [place] # (Auto) 1.3 H (0.0-1.0) 10^3/uL Eos # (Auto) 0.2 (0.0-0.7) 10^3/uL Baso # (Auto) 0.0 (0.0-0.1) 10^3/uL Absolute Nucleated RBC 0.00 x10^3/uL Nucleated RBC % 0.0 /100WBC Sodium 139 (135-145) mmol/L Potassium 4.0 (3.5-4.5) mmol/L Chloride 99 L (101-111) mmol/L Carbon Dioxide 31 (21-32) mmol/L Anion Gap 9.0 (6-13) BUN 24 H (6-20) mg/dL Creatinine 0.8 (0.6-1.3) mg/dL Estimated GFR (MDRD) 95 (>89) Glucose 101 (74-104) mg/dL Calcium 9.4 (8.5-10.3) mg/dL Phosphorus 3.5 (2.5-5.0) mg/dL Magnesium 1.9 (1.7-2.3) mg/dL - Current Medications Current Medications: Current Medications Generic Name Dose Route Start Last Admin Trade Name Freq PRN Reason Stop Dose Admin Hydralazine HCl 10 mg 11/06/23 16:00 11/07/23 09:40 Hydralazine Inj 20 Mg/Ml Vial IVP Not Given Q6H ANEESH Hydromorphone HCl 0.5 mg 11/05/23 06:58 11/07/23 09:36 Hydromorphone 0.5 Mg/0.5 Ml Syringe IVP 0.5 mg Q2H PRN Administration Severe Pain (Level 7-10) Lactated Ringer's 1,000 mls @ 125 mls/hr 11/04/23 20:00 11/07/23 10:45 Lr IV 125 mls/hr .Q8H ANEESH Administration Metoprolol Tartrate 10 mg 11/06/23 13:16 11/07/23 09:00 Metoprolol 5 Mg/5 Ml Vial IVP 10 mg Q4H ANEESH Administration Phenol/Menthol 2 sprays 11/04/23 19:24 11/05/23 18:01 Phenol Throat [place] 177 Ml MM 2 sprays Q1H PRN Administration PAIN Sodium Chloride 10 ml 11/05/23 01:00 11/07/23 10:44 Sodium Chloride Flush 0.9% 10 Ml Syringe IVP Not Given 0100,0900,1700 [facility] - Physical Exam General Appearance: positive: Alert, Lethargic Eyes Bilateral: positive: PERRL ENT: positive: Dry mucous membranes, Other (NG in place with 1200 mL bilious output in last 24 hours.) Neck: positive: Trachea midline Respiratory: positive: No respiratory distress Cardiovascular: positive: Regular rate & rhythm Abdomen: positive: Tenderness (mild diffuse with moderate right mid abdominal ttp). negative: No distention (moderate distension), Guarding, Rebound Skin: positive: No rash Extremities: positive: Full ROM Neurologic/Psychiatric: positive: Oriented x3 Impression/Plan - Problem List Problem List: This is a 73-year-old gentleman with: 1. Small bowel obstruction - The most likely etiology of the patient's bowel obstruction is adhesions from prior surgery. The patient denies any history of prior bowel obstruction, although he did have an episode of similar pain about a week prior to admission which resolved spontaneously NG tube in place, 1200mL recorded out in last 24 hours. He will remain n.p.o. until there are signs of ROBF, at which time we will his advance his diet. - Patient has failed conservative management at this time. After discussion with medicine team (Dr. Meyers), echocardiogram for cardiac risk stratification is complete and no additional testing or interventions are needed to minimize his risk at this time. He will need post op anticoagulation and rate control. If patient in A fib with RVR in OR, diltiazem drip recommended (patient will need to go to ICU post op if this is needed, bed is available). Patient also at moderate risk for pulmonary complication post op given COPD and smoking history. Planning for aggressive pulmonary toilet with IS and increasing activity as soon as possible post op. 2. Atrial fibrillation, intermittent On initial evaluation in the emergency department, the patient's EKG demonstrated sinus rhythm. However, he has had both asymptomatic and symptomat ic episodes of a fib since that time, started on metoprolol for rate control. Patient has h/o intermittent a fib and is not following with cardiology at this time. Medicine recs as above. Appreciate medicine assessment and recommendations. 3. Tobaccoism, COPD I encouraged the patient to stop smoking, post op plan to minimize pulmonary risk as above 4. Hyperlipidemia, restless leg syndrome I will hold the patient's home medication while is n.p.o., and plan to restart when he is tolerating a diet Prophylaxis: SCDs for DVT prophylaxis (will start lovenox post op), pepcid for GI ppx The patient is admitted, inpatient status, on the floor at this time.
[2023-11-07] MEDS ORDERED: ONDANSETRON 4 MG/2 ML VIAL IVP PRN ×2 (13:25→17:20)
[2023-11-07] MEDS ORDERED: ATROPINE ABBOJECT 1 MG/10 ML SYRINGE IVP PRN ×2 (13:25→17:20)
[2023-11-07] MEDS ORDERED: fentaNYL 100 MCG/2 ML VIAL IVP PRN ×2 (13:25→17:20)
[2023-11-07] MEDS ORDERED: ePHEDrine 50 MG/ML VIAL IVP PRN ×2 (13:25→17:20)
[2023-11-07] MEDS ORDERED: METOCLOPRAMIDE 10 MG/2 ML VIAL IVP PRN ×2 (13:25→17:20)
[2023-11-07] MEDS ORDERED: MORPHINE 2 MG/ML CARPUJECT IVP PRN ×2 (13:25→17:20)
[2023-11-07] MEDS ORDERED: NALOXONE 0.4 MG/ML VIAL IVP PRN ×2 (13:25→17:20)
--- NOTE | 2023-11-07 13:25 | ANESTHESIA ---
Pre-Anesthesia VS, & Labs - Diagnosis SBO - Procedure ex lap Vital Signs: Temp Pulse Resp BP Pulse Ox O2 Flow Rate 36.8 C 85 16 119/78 94 11/07/23 07:57 11/07/23 07:57 11/07/23 07:57 11/07/23 09:40 11/07/23 07:57 Height: 5 ft 10 in Weight (kg): 57.5 kg Body Mass Index: 18.1 BMI Classification: Underweight - NPO >8 hours (NGT at R [facility]) - Lab Results Current Lab Results: Laboratory Tests 11/07/23 05:32: Sodium 139, Potassium 4.0, Chloride 99 L, Carbon Dioxide 31, Anion Gap 9.0, BUN 24 H, Creatinine 0.8, Estimated GFR (MDRD) 95, Glucose 101, Calcium 9.4, Phosphorus 3.5, Magnesium 1.9 11/07/23 05:32: WBC 12.0 H, RBC 5.05, Hgb 15.9, Hct 48.7, MCV 96.4 H, MCH 31.5 H , MCHC 32.6, RDW 13.2, Plt Count 222, MPV 10.3, Neut # (Auto) 9.4 H, Lymph # (Auto) 1.1 L, [place] # (Auto) 1.3 H, Eos # (Auto) 0.2, Baso # (Auto) 0.0, Absolute Nucleated RBC 0.00, Nucleated RBC % 0.0 11/06/23 05:36: WBC 16.1 H, RBC 5.78, Hgb 18.7 H, Hct 56.2 H, MCV 97.2 H, MCH 32.4 H, MCHC 33.3, RDW 13.3, Plt Count 248, MPV 10.4, Neut # (Auto) Not Reportable, Lymph # (Auto) Not Reportable, [place] # (Auto) Not Reportable, Eos # (Auto) Not Reportable, Baso # (Auto) Not Reportable, Absolute Nucleated RBC Not Reportable, Total Counted 100, Band Neuts % (Manual) 2, Abnorm Lymph % (Manual) 0, Nucleated RBC % Not Reportable, Neutrophils # (Manual) 11.8 H, Lymphocytes # (Manual) 2.3, Monocytes # (Manual) 1.9 H, Eosinophils # (Manual) 0.2, Basophils # (Manual) 0.0, Differential Comment MANUAL DIFFERENTIAL, Platelet Estimate NORMAL (130-450,000), RBC Morph Micro Appear NORMAL APPEARANCE 11/06/23 05:36: Sodium 139, Potassium 4.4, Chloride 95 L, Carbon Dioxide 35 H, Anion Gap 9.0, BUN 21 H, Creatinine 0.9, Estimated GFR (MDRD) 83 L, Glucose 113 H, Calcium 10.3, Phosphorus 4.4, Magnesium 1.9 11/05/23 05:28: TSH 2.41 11/05/23 05:28: Sodium 138, Potassium 4.4, Chloride 98 L, Carbon Dioxide 33 H, Anion Gap 7.0, BUN 16, Creatinine 0.8, Estimated GFR (MDRD) 95, Glucose 115 H, Calcium 9.8 11/05/23 05:28: WBC 13.7 H, RBC 5.39, Hgb 17.4, Hct 51.6, MCV 95.7 H, MCH 32.3 H , MCHC 33.7, RDW 12.9, Plt Count 214, MPV 10.7 11/04/23 18:45: Lactic Acid 0.7 11/04/23 17:12: Sodium 134 L, Potassium 4.2, Chloride 97 L, Carbon Dioxide 30, Anion Gap 7.0, BUN 20, Creatinine 0.8, Estimated GFR (MDRD) 95, Glucose 118 H, Calcium 10.4 H, Total Bilirubin 0.6, AST 28, ALT 22, Alkaline Phosphatase 64, Total Protein 7.3, Albumin 4.6, Globulin 2.7, Albumin/Globulin Ratio 1.7, Lipase 20 11/04/23 17:12: WBC 11.7 H, RBC 5.34, Hgb 16.9, Hct 51.5, MCV 96.4 H, MCH 31.6 H , MCHC 32.8, RDW 13.1, Plt Count 225, MPV 10.2, Neut # (Auto) 9.8 H, Lymph # (Auto) 1.2 L, [place] # (Auto) 0.5, Eos # (Auto) 0.0, Baso # (Auto) 0.0, Absolute Nucleated RBC 0.00, Nucleated RBC % 0.0 Fish Bones: 11/07/23 05:32 11/07/23 05:32 Home Medications and Allergies Home Medications: Ambulatory Orders Aspirin Chewable [St Mehran Aspirin] 81 mg PO DAILY 11/05/23 Gabapentin [Neurontin] 100 mg PO QPM 11/05/23 rOPINIRole [Requip] 4 mg PO 1900,219911/05/23 Active Medications Hydralazine HCl (Hydralazine Inj 20 Mg/Ml Vial) 10 mg IVP Q6H [facility] Last Admin: 11/07/23 09:40 Dose: Not Given Hydromorphone HCl (Hydromorphone 0.5 Mg/0.5 Ml Syringe) 0.5 mg IVP Q2H PRN PRN Reason: Severe Pain (Level 7-10) Last Admin: 11/07/23 09:36 Dose: 0.5 mg Lactated Ringer's (Lr) 1,000 mls @ 125 mls/hr IV .Q8H [facility] Last Admin: 11/07/23 10:45 Dose: 125 mls/hr Metoprolol Tartrate (Metoprolol 5 Mg/5 Ml Vial) 10 mg IVP Q4H [facility] Last Admin: 11/07/23 09:00 Dose: 10 mg Ondansetron HCl (Ondansetron 4 Mg/2 Ml Vial) 4 mg IVP Q6HR PRN PRN Reason: Nausea / Vomiting Phenol/Menthol (Phenol Throat [place] 177 Ml) 2 sprays MM Q1H PRN PRN Reason: PAIN Last Admin: 11/05/23 18:01 Dose: 2 sprays Sodium Chloride (Sodium Chloride Flush 0.9% 10 Ml Syringe) 10 ml IVP 0100,0900,1700 [facility] Last Admin: 11/07/23 10:44 Dose: Not Given Sodium Chloride (Sodium Chloride Flush 0.9% 10 Ml Syringe) 10 ml IVP PRN PRN PRN Reason: NEEDED PER PROVIDER ORDERS Rosuvastatin Calcium [Crestor] 10 mg PO QPM 03/15/23 Aspirin Chewable [St Mehran Aspirin] 81 mg PO DAILY 11/05/23 Gabapentin [Neurontin] 100 mg PO QPM 11/05/23 rOPINIRole [Requip] 4 mg PO 1900,0 11/05/23 Allergies/Adverse Reactions: Allergies Allergy/AdvReac Type Severity Reaction Status Date / Time No Known Drug Allergies Allergy Verified 11/04/23 17:01 Anes History & Medical History - Anesthetic History Anesthesia Complications: reports: No previous complications Family history of Anesthesia Complications: Denies Family history of Malignant Hyperthermia: Denies - Medical History Cardiovascular: reports: None, Atrial fibrillation (admit in NSR, AF on floor) Pulmonary: reports: Emphysema, Other Urinary: reports: None Neuro: reports: None Musculoskeletal: reports: Osteoarthritis Endocrine/Autoimmune: reports: None Blood Disorders: reports: None Skin: reports: None Smoking Status: Current every day smoker - Surgical History General: reports: Colonoscopy, Other Eyes Ears Nose Throat (EENT): reports: Cataracts Cardiothoracic: reports: Other Exam General: Alert, Oriented x3, Cooperative, Mild distress Dental: Partials Upper, Partials Lower, Poor dentition Mouth Openin Fingerbreadth Neck Mobility: Normal Mallampati classification: II Thyromental Distance: 4-6 cm Respiratory: Lungs clear, Normal breath sounds, No respiratory distress Cardiovascular: Other (AF) Abdomen: Other (NGT to sxn) Neurological: Normal speech Mental/Cognitive Status: Alert/Oriented X3, Normal for patient Cognitive Status: Within normal limits Plan Anesthesia Type: General, Transverse Abdominis Plane (TAP) Block Consent for Procedure(s) Verified and Reviewed: Yes Code Status: Attempt Resuscitation ASA classification: 3-Severe systemic disease Is this case an emergency?: Yes
[2023-11-07] MEDS ORDERED: MIDAZOLAM 2 MG/2 ML VIAL ONE (13:38)
[2023-11-07] MEDS ORDERED: fentaNYL 100 MCG/2 ML VIAL ONE (13:39)
[2023-11-07] MEDS ORDERED: PROPOFOL 200 MG/20 ML VIAL IVP ONE (13:40)
[2023-11-07] MEDS ORDERED: ROCURONIUM 50 MG/5 ML VIAL ONE ×2 (13:41→15:44)
[2023-11-07] MEDS ORDERED: BUPIVACAINE 0.5%-EPI 1:200000 PF 30 ML VIAL ONE (14:16)
[2023-11-07] MEDS ORDERED: LIDOCAINE 1%-EPI 1:100000 20 ML MDV ONE (14:16)
[2023-11-07] MEDS ORDERED: BUPIVACAINE 0.25% PF 30 ML VIAL ONE (14:18)
[2023-11-07] MEDS ORDERED: ceFAZolin 1 GM VIAL ONE (14:31)
[2023-11-07] MEDS ORDERED: METOPROLOL 5 MG/5 ML VIAL IVP ONE (14:56)
[2023-11-07] MEDS ORDERED: ONDANSETRON 4 MG/2 ML VIAL ONE (14:56)
[2023-11-07] MEDS ORDERED: DEXAMETHASONE 4 MG/ML VIAL ONE (14:56)
[2023-11-07] MEDS ORDERED: ACETAMINOPHEN 1,000 MG/100 ML 1,000 MG/100 ML BAG IV ONE (15:13)
[2023-11-07] MEDS ORDERED: HYDROmorphone 1 MG/ML CARPUJECT ONE (15:14)
[2023-11-07] MEDS ORDERED: SUGAMMADEX 200 MG/2 ML VIAL IVP ONE (15:41)
[2023-11-07] MEDS: ceFAZolin (2G) 2 GM in SODIUM CHLORIDE 0.9% MINIBAG 100 ML IV ONE (16:14)
[2023-11-07] MEDS: LACTATED RINGERS 1,000 ML IV SCH (16:14)
[2023-11-07] MEDS: metroNIDAZOLE 500 MG/100 ML 500 MG/100 ML BAG IV ONE (16:15)
[2023-11-07] MEDS: diltiaZEM INJ 125 MG in DEXTROSE 5% 100 ML IV SCH ×2 (16:16→18:59)
[2023-11-07] MEDS: LACTATED RINGERS 1,000 ML IV ONE ×2 (16:54→18:10)
[2023-11-07] MEDS ORDERED: HYDROmorphone 0.5 MG/0.5 ML SYRINGE ONE (17:12)
[2023-11-07] MEDS: HYDROmorphone 0.5 MG/0.5 ML SYRINGE IVP PRN (17:13)
[2023-11-07] MEDS ORDERED: LACTATED RINGERS 1,000 ML IV SCH (17:20)
[2023-11-07] MEDS ORDERED: HYDROmorphone 0.5 MG/0.5 ML SYRINGE IVP PRN (17:20)
--- NOTE | 2023-11-07 17:42 | OPERATIVE REPORT ---
Operative Report - General Admit Date: 11/05/23 Procedure Date: 11/07/23 Planned Procedure: exploratory laparotomy, possible small bowel resection Pre-Op Diagnosis: small bowel obstruction Procedure Performed: exploratory laparotomy with small bowel resection, lysis of adhesions, and abdominal washout Post Op Diagnosis: small bowel obstruction due to adhesions - Procedure Note Primary Surgeon: Dr. Elaina Tejeda Anesthesia Provider: Rob Bowman CRNA Anesthesia Technique: General ET tube Pathology: 1. small bowel 2. foreign body consistent with tack used in prior hernia repair IV Fluids (mL): 1,700 Estimated Blood Loss (mL): 10 Urine Output (mL): 40 Drain/Tube Type: Other (NG with 1600mL out during surgery) Indications: The patient presented with a small bowel obstruction. Unfortunately, he has not improved with conservative management. We discussed the risks, benefits, and alternatives of diagnostic laparoscopy versus exploratory laparotomy with lysis of adhesions and possible small bowel resection. Due to the extent of the patient's abdominal distention, diagnostic laparoscopy is not possible at this time. Risks include bleeding, infection, damage to surrounding structures, and the need for further surgeries or procedures. The patient voiced understanding, his questions were answered, and he wished to proceed. A consent was signed by the patient prior to surgery. Findings: 1. Omental adhesion to abdominal foreign body (consistent with tach from prior hernia repair) in the posterior abdomen causing small bowel obstruction. 2. Partial thickness cautery injury caused on entry to the abdomen, very close to location of obstruction 3. Remainder of small intestine appears viable. 4. Moderate amount of serous ascites 5. 1700 mL of fluid recovered from NG during surgery Complications: 1.Partial-thickness cautery injury to intestine on entry to the abdomen - Other Other Information/Narrative: The patient was brought to the operative suite and placed in the supine position. General endotrachealanesthesia was induced. A Baltazar catheter was placed. Preoperative antibiotics were given. ERAS protocol was not followed due to the patient's pre op nausea. A preop surgical timeout was performed. A midline surgical incision was made approximately 10 cm in length, centered over the patient's umbilicus as imaging prior to surgery indicated the location of the obstruction was in the right mid abdomen. This incision was carried down through the skin and subcutaneous tissues with electrocautery and the fascia was incised. The patient's abdominal wall was remarkably thin, and on entry to the abdomen a partial-thickness cautery injury to the small bowel was identified. This was oversewn in a Lembert fashion using 3-0 Vicryl. Next, the small bowel was gently eviscerated and noted to be markedly dilated. An adhesion between the omentum and the posterior abdominal wall was identified and divided using an impact LigaSure device. The location where the band had gone across the small bowel appeared markedly edematous and erythematous. The bowel was run proximally to the ligament of Treitz and as much fluid as possible as milk back into the stomach. Approximately 1700 mL of fluid was recovered via the NG from the stomach. The bowel was noted to be markedly less distended at this time and the bowel was run from the ligament of Treitz to the terminal ileum. A second area of adhesion to the posterior of abdominal wall was noted involving a piece of small bowel and mesentery. At the base of this adhesion was a foreign body consistent with a tack used for the patient's prior inguinal hernia repair. The foreign body was free-floating in the abdomen and was removed. The area where the band had come across the bowel was again inspected and there was concern that this would not be a viable. It was also noted to be close to the area of the cautery injury. At this time I elected to perform a small bowel resection to remove both areas. Sterile towels were placed and enterotomies were made in the proximal and distal small intestine. Next, an [id number] functional end-to-end stapled anastomosis was performed using a RAHUL 70 stapler. The small bowel was divided to include the common enterotomy and the specimen. The mesentery was then divided using the impact LigaSure device. The mesenteric defect was closed using 3-0 Vicryl in a running fashion. The stapled anastomosis was oversewn in Lembert fashion using 3-0 Vicryl in an interrupted fashion. The anastomosis was widely patent to palpation. Again the remainder of the bowel was inspected and noted to be viable and healthy. The abdomen was irrigated with 2 L of warm normal saline. Next, the fascia was closed using 0 PDS in a running fashion taking 0.5 cm bites and 0.5 cm advances the length of the incision starting from the top and bottom. The 2 sutures were tied. The subcutaneous tissues were irrigated with warm saline. Next, the deep dermal tissues were reapproximated with 3-0 Vicryl in an interrupted fashion and the skin edges were reapproximated with 4-0 Monocryl in a running subcuticular fashion. The patient had low urine output throughout the surgery and the Baltazar was left at the end of the case. Patient tolerated the procedure well. He was in atrial fibrillation at the beginning of the case and in sinus rhythm at the end of the case. The patient was extubated in the operating room and transferred to the recovery room in stable condition. Needle and sponge counts were correct at the end of the case.
[2023-11-07] MEDS: rOPINIRole 1 MG TABLET PO SCH (18:44)
--- NOTE | 2023-11-07 19:30 | ANESTHESIA POST OP EVALUATION ---
Anesthesia Post Eval - Post Anesthesia Eval Vitals: Last Vital Signs Temp 36.6 C 11/07/23 19:00 Pulse 105 H 11/07/23 19:00 Resp 16 11/07/23 19:00 BP 115/62 11/07/23 19:00 Pulse Ox 95 11/07/23 19:00 O2 Flow Rate CV Function Including HR & BP: Stable Pain Control: Satisfactory Nausea & Vomiting: Negative Mental Status: Baseline Respiratory Status: Airway Patent Hydration Status: Satisfactory Anesthesia Complications: None
--- NOTE | 2023-11-07 20:34 | PROVIDER PROGRESS NOTE ---
Progress Note No new recommendations at this time. Will continue to follow.
[2023-11-07] MEDS: ATORVASTATIN 10 MG TABLET PO SCH (22:16)
[2023-11-07] MEDS: GABAPENTIN 100 MG CAPSULE PO SCH (22:17)
[2023-11-08 05:50] LABS: HCT - HEMATOCRIT 44.6 % (42.0-52.0); HGB - HEMOGLOBIN 14.3 g/dL (14.0-18.0); MEAN CORPUSCULAR HEMOGLOBIN 31.8 pg (27.0-31.0); MEAN CORPUSCULAR HGB CONC 32.1 g/dL (32.0-36.0); MEAN CORPUSCULAR VOLUME 99.1 fL (80.0-94.0); MEAN PLATELET VOLUME 10.1 fL (7.4-11.4); RED BLOOD COUNT 4.5 10^6/uL (4.70-6.10); RED CELL DISTRIBUTION WIDTH 13.4 % (12.0-15.0); WHITE BLOOD COUNT 8.7 x10^3/uL (4.8-10.8)
[2023-11-08 06:11] LABS: CALCIUM 8.4 mg/dL (8.5-10.3); CREATININE 0.8 mg/dL (0.6-1.3)
--- NOTE | 2023-11-08 08:33 | PROVIDER PROGRESS NOTE ---
Subjective - General Admit Date: 11/05/23 Procedure Date: 11/07/23 Post Op Days: 1 Procedure Performed: ex lap with small bowel resection, lysis of adhesions, abdominal washout - Other Other Information/Narrative: Patient states he feels "about the same" this AM. Denies significant abdominal pain. NG is very uncomfortable and he would like it out. No n/v. No flatus. He has not been out of bed since surgery. Objective - Patient Data Vital Signs: Vital Signs x48h Temp Pulse Resp BP BP BP Pulse Ox 11/08/23 07:36 36.8 C 89 20 107/63 93 11/08/23 04:30 108/59 L 11/08/23 04:29 108/59 L 11/08/23 04:28 108/59 L 11/08/23 04:00 36.7 C 95 18 128/70 95 11/08/23 03:00 36.8 C 85 16 112/65 94 11/08/23 00:40 116/61 O2 Flow Rate 11/08/23 07:36 1 11/08/23 04:30 11/08/23 04:29 11/08/23 04:28 11/08/23 04:00 1 11/08/23 03:00 11/08/23 00:40 Weight: Weight 11/06/23 11/07/23 11/08/23 23:59 23:59 23:59 Weight (kg) 57.5 kg Intake & Output: Intake and Output Totals x24h 11/06/23 11/07/23 11/08/23 23:59 23:59 23:59 Intake Total 3100 3027.50 1012.083 Output Total 350 1525 600 Balance 2750 1502.50 412.083 - Lab Results Lab Results: 11/08/23 05:39 11/08/23 05:39 Other Lab Results: Lab Results x24hrs 11/08/23 11/08/23 Range/Units 05:39 05:39 WBC 8.7 (4.8-10.8) x10^3/uL RBC 4.50 L (4.70-6.10) 10^6/uL Hgb 14.3 (14.0-18.0) g/dL Hct 44.6 (42.0-52.0) % MCV 99.1 H (80.0-94.0) fL MCH 31.8 H (27.0-31.0) pg MCHC 32.1 (32.0-36.0) g/dL RDW 13.4 (12.0-15.0) % Plt Count 210 (130-450) 10^3/uL MPV 10.1 (7.4-11.4) fL Sodium 141 (135-145) mmol/L Potassium 4.0 (3.5-4.5) mmol/L Chloride 101 (101-111) mmol/L Carbon Dioxide 31 (21-32) mmol/L Anion Gap 9.0 (6-13) BUN 21 H (6-20) mg/dL Creatinine 0.8 (0.6-1.3) mg/dL Estimated GFR (MDRD) 95 (>89) Glucose 89 (74-104) mg/dL Calcium 8.4 L (8.5-10.3) mg/dL - Current Medications Current Medications: Current Medications Generic Name Dose Route Start Last Admin Trade Name Freq PRN Reason Stop Dose Admin Atorvastatin Calcium 20 mg 11/07/23 21:00 11/07/23 22:16 Atorvastatin 10 Mg Tablet PO 20 mg QPM ANEESH Administration Gabapentin 100 mg 11/07/23 21:00 11/07/23 22:17 Gabapentin 100 Mg Capsule PO 100 mg QPM ANEESH Administration Hydralazine HCl 10 mg 11/06/23 16:00 11/08/23 04:30 Hydralazine Inj 20 Mg/Ml Vial IVP Not Given Q6H ANEESH Hydromorphone HCl 0.5 mg 11/05/23 06:58 11/08/23 07:59 Hydromorphone 0.5 Mg/0.5 Ml Syringe IVP 0.5 mg Q2H PRN Administration Severe Pain (Level 7-10) Lactated Ringer's 1,000 mls @ 125 mls/hr 11/04/23 20:00 11/08/23 02:01 Lr IV 125 mls/hr .Q8H ANEESH Administration Diltiazem HCl 125 mg/ Dextrose 125 mls @ 5 mls/hr 11/07/23 17:20 11/07/23 18:59 IV Not Given .Q25H ANEESH Protocol 5 MG/HR Metoprolol Tartrate 10 mg 11/06/23 13:16 11/08/23 04:29 Metoprolol 5 Mg/5 Ml Vial IVP 10 mg Q4H ANEESH Administration Phenol/Menthol 2 sprays 11/04/23 19:24 11/05/23 18:01 Phenol Throat [place] 177 Ml MM 2 sprays Q1H PRN Administration PAIN Ropinirole HCl 4 mg 11/07/23 19:00 11/07/23 22:16 Ropinirole 1 Mg Tablet PO 4 mg 1900,2200 ANEESH Administration Sodium Chloride 10 ml 11/05/23 01:00 11/08/23 00:40 Sodium Chloride Flush 0.9% 10 Ml Syringe IVP 10 ml 0100,0900,1700 ANEESH Administration - Physical Exam Comments/Other: GEN: No acute distress, alert and oriented CV: RRR PULM: Nonlabored, on 1L O2 ABD: soft, appropriate post op ttp, no rebound or guarding, less distended since surgery EXT: no edema Impression/Plan - Problem List Problem List: This is a 73-year-old gentleman with: 1. Small bowel obstruction, resolved - s/p ex lap with ANAHY, small bowel resection, abdominal washout on 5 (POD#1) NG tube in place, 300mL recorded out in since surgery. Will clamp and check residual this AM. If residual low, plan to remove and start on clears. He will remain n.p.o. until there are signs of ROBF, at which time we will his advance his diet. 2. Atrial fibrillation, intermittent on metoprolol now for rate control - echo reassuring - plan to start anticoagulation 5-7 days after surgery - Appreciate medicine assessment and recommendations. 3. Tobaccoism, COPD Patient is committed to stopping smoking. He may take his home chantix. - I had a discussion with the patient this morning regarding the importance of avoiding nicotine in the acute healing period and that this is the single best change he could make for his health overall. We also discussed he is at risk for pulmonary complications from surgery. - encouraging IS, flutter valve, increasing activity today 4. Hyperlipidemia, restless leg syndrome home meds restarted Prophylaxis: SCDs, lovenox for DVT prophylaxis, pepcid for GI ppx The patient is admitted, inpatient status, on the floor at this time.
[2023-11-08] MEDS: ENOXAPARIN 40 MG/0.4 ML SYRINGE SUBQ SCH (09:50)
[2023-11-08] MEDS ORDERED: IBUPROFEN 600 MG TABLET PO PRN (10:52)
[2023-11-08] MEDS: LACTATED RINGERS 1,000 ML IV SCH (12:46)
[2023-11-08] MEDS: METOPROLOL TARTRATE 25 MG TABLET PO SCH (14:33)
[2023-11-08] MEDS: ACETAMINOPHEN 500 MG TABLET PO SCH (14:34)
--- NOTE | 2023-11-08 22:12 | PROVIDER PROGRESS NOTE ---
Progress Note No new recommendations today. Will continue to follow.
[2023-11-09 06:49] LABS: HCT - HEMATOCRIT 40.1 % (42.0-52.0); HGB - HEMOGLOBIN 12.9 g/dL (14.0-18.0); MEAN CORPUSCULAR HEMOGLOBIN 31.6 pg (27.0-31.0); MEAN CORPUSCULAR HGB CONC 32.2 g/dL (32.0-36.0); MEAN CORPUSCULAR VOLUME 98.3 fL (80.0-94.0); MEAN PLATELET VOLUME 10.7 fL (7.4-11.4); RED BLOOD COUNT 4.08 10^6/uL (4.70-6.10); RED CELL DISTRIBUTION WIDTH 13.2 % (12.0-15.0)
[2023-11-09 07:07] LABS: CREATININE 0.7 mg/dL (0.6-1.3); POTASSIUM 3.8 mmol/L (3.5-4.5)
--- NOTE | 2023-11-09 08:17 | PROVIDER PROGRESS NOTE ---
Subjective - General Admit Date: 11/05/23 Procedure Date: 11/07/23 Post Op Days: 2 Procedure Performed: ex lap with small bowel resection, lysis of adhesions, abdominal washout - Other Other Information/Narrative: Pain controlled. Passing flatus. No BM yet. Tolerating clears. No n/v since NG removed. Ambulating in halls. +void. Needing O2 at night but able to rest much more comfortably last night. Objective - Patient Data Vital Signs: Vital Signs x48h Temp Pulse Pulse Resp BP BP BP 11/09/23 08:03 36.7 C 74 20 122/60 11/09/23 06:33 36.6 C 62 14 116/58 L 11/09/23 05:38 114/68 11/09/23 00:46 36.7 C 65 16 110/56 L Pulse Ox O2 Flow Rate 11/09/23 08:03 93 11/09/23 06:33 93 1 11/09/23 05:38 11/09/23 00:46 88 L 1 Weight: Weight 11/07/23 11/08/23 11/09/23 23:59 23:59 23:59 Weight (kg) 57.5 kg Intake & Output: Intake and Output Totals x24h 11/07/23 11/08/23 11/09/23 23:59 23:59 23:59 Intake Total 3027.50 3844.583 0 Output Total 1525 1950 Balance 1502.50 1894.583 0 - Lab Results Lab Results: 11/09/23 06:08 11/09/23 06:08 Other Lab Results: Lab Results x24hrs 11/09/23 11/09/23 Range/Units 06:08 06:08 WBC 6.0 (4.8-10.8) x10^3/uL RBC 4.08 L (4.70-6.10) 10^6/uL Hgb 12.9 L (14.0-18.0) g/dL Hct 40.1 L (42.0-52.0) % MCV 98.3 H (80.0-94.0) fL MCH 31.6 H (27.0-31.0) pg MCHC 32.2 (32.0-36.0) g/dL RDW 13.2 (12.0-15.0) % Plt Count 193 (130-450) 10^3/uL MPV 10.7 (7.4-11.4) fL Sodium 136 (135-145) mmol/L Potassium 3.8 (3.5-4.5) mmol/L Chloride 102 (101-111) mmol/L Carbon Dioxide 29 (21-32) mmol/L Anion Gap 5.0 L (6-13) BUN 23 H (6-20) mg/dL Creatinine 0.7 (0.6-1.3) mg/dL Estimated GFR (MDRD) 111 (>89) Glucose 87 (74-104) mg/dL Calcium 8.0 L (8.5-10.3) mg/dL - Current Medications Current Medications: Current Medications Generic Name Dose Route Start Last Admin Trade Name Freq PRN Reason Stop Dose Admin Acetaminophen 500 mg 11/08/23 13:00 11/09/23 05:39 Acetaminophen 500 Mg Tablet PO 500 mg Q4HR ANEESH Administration Atorvastatin Calcium 20 mg 11/07/23 21:00 11/08/23 22:03 Atorvastatin 10 Mg Tablet PO 20 mg QPM ANEESH Administration Enoxaparin Sodium 40 mg 11/08/23 09:00 11/08/23 09:50 Enoxaparin 40 Mg/0.4 Ml Syringe SUBQ 40 mg DAILY ANEESH Administration Gabapentin 100 mg 11/07/23 21:00 11/08/23 22:03 Gabapentin 100 Mg Capsule PO 100 mg QPM ANEESH Administration Hydralazine HCl 10 mg 11/06/23 16:00 11/09/23 05:38 Hydralazine Inj 20 Mg/Ml Vial IVP Not Given Q6H ANEESH Hydromorphone HCl 0.5 mg 11/05/23 06:58 11/08/23 18:40 Hydromorphone 0.5 Mg/0.5 Ml Syringe IVP 0.5 mg Q2H PRN Administration Severe Pain (Level 7-10) Lactated Ringer's 1,000 mls @ 75 mls/hr 11/08/23 12:36 11/08/23 22:04 Lr IV 75 mls/hr .[id number] ANEESH Administration Metoprolol Tartrate 25 mg 11/08/23 14:00 11/08/23 22:07 Metoprolol Tartrate 25 Mg Tablet PO 25 mg BID ANEESH Administration Phenol/Menthol 2 sprays 11/04/23 19:24 11/05/23 18:01 Phenol Throat [place] 177 Ml MM 2 sprays Q1H PRN Administration PAIN Ropinirole HCl 4 mg 11/07/23 19:00 11/08/23 22:09 Ropinirole 1 Mg Tablet PO 4 mg 1900,2200 [facility] Administration Sodium Chloride 10 ml 11/05/23 01:00 11/09/23 01:08 Sodium Chloride Flush 0.9% 10 Ml Syringe IVP Not Given 0100,0900,1700 [facility] - Physical Exam Comments/Other: Gen: NAD, alert and oriented CV: RRR Pulm: non labored, on 1L O2 this AM Abd: soft, less distended, no r/g, appropriate incisional ttp. Incision is c/d/i Ext: no edema Impression/Plan - Problem List Problem List: This is a 73-year-old gentleman with: 1. Small bowel obstruction, resolved - s/p ex lap with ANAHY, small bowel resection, abdominal washout on 11/06 (POD#2) NG tube removed yesterday, tolerating clears. Will adat to soft diet this AM. - increase bowel regimen today (pt was noted to have hard stool throughout colon at time of surgery) 2. Atrial fibrillation, intermittent on metoprolol now for rate control (transitioned to PO yesterday) - echo reassuring - plan to start anticoagulation 5-7 days after surgery - Appreciate medicine assessment and recommendations. 3. Tobaccoism, COPD Patient is committed to stopping smoking. He may take his home chantix or start if needed after discharge. - encouraging IS, flutter valve, increasing activity today - patient needing O2 at night, last night 4. Hyperlipidemia, restless leg syndrome home meds restarted Prophylaxis: SCDs, lovenox for DVT prophylaxis, pepcid for GI ppx The patient is admitted, inpatient status, on the floor at this time. Hopeful that with increased IS, activity today he will not need oxygen tonight. PM update: Still only tolerating small amounts of food, no BM, small amount of flatus. Adding suppository this PM. Hgb dropped some this AM, appears dilutional. Plan for possible d/c tomorrow if hgb stable, able to stay of O2 tonight.
[2023-11-09] MEDS: oxyCODONE 5 MG TABLET PO PRN (08:37)
[2023-11-09] MEDS: polyethylene glycoL 3350 17 GM PACKET PO SCH (08:37)
[2023-11-09] MEDS: BISACODYL 10 MG SUPP PR ONE (16:15)
[2023-11-10 05:46] LABS: HCT - HEMATOCRIT 42.4 % (42.0-52.0); HGB - HEMOGLOBIN 14.3 g/dL (14.0-18.0); MEAN CORPUSCULAR HEMOGLOBIN 32.2 pg (27.0-31.0); MEAN CORPUSCULAR HGB CONC 33.7 g/dL (32.0-36.0); MEAN CORPUSCULAR VOLUME 95.5 fL (80.0-94.0); MEAN PLATELET VOLUME 10.1 fL (7.4-11.4); RED BLOOD COUNT 4.44 10^6/uL (4.70-6.10); RED CELL DISTRIBUTION WIDTH 12.8 % (12.0-15.0)
[2023-11-10 06:17] LABS: CALCIUM 8.4 mg/dL (8.5-10.3); CREATININE 0.6 mg/dL (0.6-1.3); POTASSIUM 3.8 mmol/L (3.5-4.5)
[2023-11-10 08:11] VITALS: O2SAT 90
[2023-11-10 11:21] VITALS: BP 114/63
--- NOTE | 2023-11-10 11:34 | Discharge Plan ---
Discharge Plan Problem Reviewed?: Yes Disposition: Home, Self Care Condition: Good Prescriptions: Metoprolol Tartrate [Lopressor] 25 mg PO BID 30 Days #60 tablet polyethylene glycoL 3350(BULK) [Miralax] 17 gm PO DAILY #238 gm oxyCODONE [Roxicodone] 5 mg PO Q4H PRN #15 tablet PRN Reason: Pain Diet: Regular (diet as tolerated) Activity Restrictions: Additional Comments (no driving while taking prescription pain pills no soaking in a tub for 2 weeks) Shower Restrictions: No Health Concerns: recent intestinal blockage requiring surgery Plan of Treatment: surgery for intestinal blockage including small bowel resection. doing well following surgery. Assessment: doing well following surgery. tolerating diet, having bms, afebrile and normal wbc Additional Instructions or Follow Up instructions: call the surgery office with any concerns and to make a follow up appointment [phone] No Smoking: If you smoke, Please STOP! Call for help.
--- NOTE | 2023-11-10 11:38 | DISCHARGE SUMMARY ---
"Discharge Summary Admit Date: 11/04/23 Discharge Date: 11/10/23 Discharging Provider: anatoly bae md Code Status: Attempt Resuscitation Condition at Discharge: Good Discharge Disposition: 01 Home, Self Care Discharge Facility Name: [facility] - DIAGNOSES Admission Diagnoses: sbo Discharge Diagnoses with Status of Each Condition: doing well after laparotomy, lysis of adhesions, partial small bowel resection. tolering diet, having bms, etc - HPI History of Present Illness: present with bowel obstruction requiring surgery and partial small bowel resection - CONSULTS | PROCEDURES Procedures: as above - HOSPITAL COURSE Hospital Course: as above - ALLERGIES Allergies/Adverse Reactions: Allergies Allergy/AdvReac Type Severity Reaction Status Date / Time No Known Drug Allergies Allergy Verified 11/04/23 17:01 - MEDICATIONS Home Medications: Ambulatory Orders Medication Instructions Recorded Confirmed Rosuvastatin Calcium [Crestor] 10 mg PO QPM 03/15/23 11/05/23 Aspirin Chewable [[facility] [place] 81 mg PO DAILY 11/05/23 11/05/23 Aspirin] Gabapentin [Neurontin] 100 mg PO QPM 11/05/23 11/05/23 rOPINIRole [Requip] 4 mg PO 1900,2200 11/05/23 11/05/23 Metoprolol Tartrate [Lopressor] 25 mg PO BID 30 Days #60 tablet 11/09/23 oxyCODONE [Roxicodone] 5 mg PO Q4H PRN #15 tablet 11/09/23 polyethylene glycoL 3350(BULK) 17 gm PO DAILY #238 gm 11/09/23 [Miralax] - PHYSICAL EXAM AT DISCHARGE General Appearance: positive: No acute distress, Alert Eyes Bilateral: positive: PERRL, EOMI ENT: positive: No signs of dehydration Neck: positive: No JVD, Trachea midline Respiratory: positive: No respiratory distress Abdomen: positive: Non-tender, No distention, Other (dressing c/d/i no erythema) Neurologic/Psychiatric: positive: Oriented x3 - LABS Result Diagrams: 11/10/23 05:29 11/10/23 05:29 - FOLLOW UP Follow Up: call the surgery office to make a follow up appointment and with any concerns [phone]"
== END 2023-11-10 12:25 | disposition home or self-care (01) | DRG 330 ==
LOC: ED 16:59 → MS2 19:24 → OBSVTOIN 11-05 12:36
PROVIDERS: ADMIT Surgery; ATTEND Surgery
PROC: 0DB80ZZ Excision of Small Intestine, Open Approach (ICD-10-PCS; principal; 2023-11-07 14:15)
DX: K56.51 Intestinal adhesions [bands], with partial obstruction (principal); K56.609 Unspecified intestinal obstruction, unspecified as to partial versus complete obstruction; K91.71 Accidental puncture and laceration of a digestive system organ or structure during a digestive system procedure; I49.3 Ventricular premature depolarization; R03.1 Nonspecific low blood-pressure reading; D72.829 Elevated white blood cell count, unspecified; E78.00 Pure hypercholesterolemia, unspecified; I48.91 Unspecified atrial fibrillation; J44.9 Chronic obstructive pulmonary disease, unspecified; J43.9 Emphysema, unspecified; M19.90 Unspecified osteoarthritis, unspecified site; G25.81 Restless legs syndrome; F17.200 Nicotine dependence, unspecified, uncomplicated; Y65.8 Other specified misadventures during surgical and medical care; Y92.234 Operating room of hospital as the place of occurrence of the external cause; Z71.6 Tobacco abuse counseling; Z79.82 Long term (current) use of aspirin; Z79.899 Other long term (current) drug therapy; Z87.19 Personal history of other diseases of the digestive system; Z98.890 Other specified postprocedural states
CPT/HCPCS: 36415; 74018; 74019; 74177; 74250; 80048; 80053; 81003; 83605; 83690; 83735; 84100; 84443; 85025; 85027; 93005; 93307; 96374; 96375; 96376; 97116; 97161; 99285; A9270; G0378; J0131; J1170; J1650; J7120; Q9963; Q9967; 81001; 87086